=== PATIENT | female | born 1960 | race Caucasian/White ===

== ENCOUNTER 2019-01-03 20:36 | Inpatient (IN) | payer OTHER ==
[2019-01-03 20:36] VITALS: BMI 22.3
[2019-01-03] MEDS ORDERED: Lidocaine 5% Patch TD STA (21:00)
[2019-01-03] MEDS ORDERED: Lidocaine 5% Patch TD ONE (21:06)
[2019-01-03] MEDS ORDERED: Morphine 4 MG/ML VIAL ONE ×2 (21:12→22:26)
--- NOTE | 2019-01-03 21:49 | C.PDOC ---
History Of Present Illness Patient is a 58 year old female, with a hx of Seziures and herniated discs, presents to the ED c/o neck pain radiating to her lower back that began today while at work. 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 She rates the pain as a 10/10. She denies any headache, dizziness, weakness, numbness, or tingling. <Nazia Sheikh - Last Filed: 01/03/19 22:48> History Per: Patient History/Exam Limitations: no limitations Onset/Duration Of Symptoms: Hrs Current Symptoms Are (Timing): Still Present Quality Of Discomfort: "Pain" Pain Scale Rating Of: 10 Associated Symptoms: denies: New Weakness, New Numbness Recent travel outside of the [place]: No Additional History Per: Patient <Nazia Sheikh - Last Filed: 01/03/19 22:48> <Gregory Thompson - Last Filed: 01/04/19 00:41> Chief Complaint (Nursing): Back Pain Past Medical History Reviewed: Historical Data, Nursing Documentation, Vital Signs Vital Signs: Last Vital Signs Temp 98.8 F 01/03/19 20:41 Pulse 89 01/03/19 20:41 Resp 18 01/03/19 20:41 BP 152/62 H 01/03/19 20:41 Pulse Ox 98 01/03/19 20:41 Primary Care Provider: FAMILY PROVIDER,NO - Medical History PMH: Anxiety, Arthritis, Depression, Seizures Denies: Alzheimer's Disease, Anemia, Asthma, Bipolar Disorder, Bronchitis, Cardia Arrhythmia, CHF, COPD, Crohn's Disease, Dementia, Diverticulitis, Emphysema, Fibromyalgia, Fractures, Gastrointestinal Ulcer, Gall Bladder Disease, HIV, HTN, Hypercholesterolemia, Hyperthyroidism, Hypothyroidism, Kidney Stones, Migraine, Mitral Valve Prolapse, Osteoporosis, Pancreatitis, Paranoia, Parkinson's Disease, Peripheral Edema, Pneumonia, Post Traumatic Stress Disorder, Chronic Kidney Disease, Schizophrenia, Sickle Cell Disease, Sexually Transmitted Disease, Sleep Apnea, TIA Surgical History: Appendectomy Denies: Cholecystectomy, Coronary Stent, Pacemaker Family History: States: No Known Family Hx - Social History Hx Tobacco Use: No Hx Alcohol Use: No Hx Substance Use: No - Immunization History Hx Influenza Vaccination: Yes Hx Pneumococcal Vaccination: Yes <Nazia Sheikh - Last Filed: 01/03/19 22:48> Vital Signs: Last Vital Signs Temp 97.7 F 01/04/19 00:03 Pulse 74 01/04/19 00:03 Resp 18 01/04/19 00:03 BP 127/79 01/04/19 00:03 Pulse Ox 100 01/04/19 00:03 <Gregory Thompson - Last Filed: 01/04/19 00:41> Review Of Systems Constitutional: Negative for: Fever, Chills Cardiovascular: Negative for: Chest Pain Respiratory: Negative for: Shortness of Breath Gastrointestinal: Negative for: Nausea, Vomiting Musculoskeletal: Positive for: Neck Pain (neck pain radiating to lower back), Back Pain Skin: Negative for: Bruising Neurological: Negative for: Weakness, Numbness, Headache, Dizziness, Other (tingling) <Nazia Sheikh - Last Filed: 01/03/19 22:48> Physical Exam - Physical Exam Appears: Non-toxic, No Acute Distress Skin: Normal Color, Warm, Dry Head: Atraumatic, Normacephalic Eye(s): bilateral: Normal Inspection, PERRL Ear(s): Bilateral: Normal Nose: No Discharge Oral Mucosa: Moist Tongue: Normal Appearing Neck: Decreased ROM (limited ROM ), Other (Tender to touch posteriorly) Chest: Symmetrical Cardiovascular: Rhythm Regular, No Murmur Respiratory: Normal Breath Sounds, No Accessory Muscle Use, No Wheezing Gastrointestinal/Abdominal: Soft, No Tenderness Back: No CVA Tenderness, Vertebral Tenderness, Decreased ROM, Muscle Spasm, Paraspinal Tenderness, Other (Tender to lumbar spine. No ecchymosis, erythema, or edema) Extremity: Bilateral: Atraumatic Neurological/Psych: Oriented x3, Normal Speech, Normal Cognition, Normal Sensation <Nazia Sheikh - Last Filed: 01/03/19 22:48> ED Course And Treatment O2 Sat by Pulse Oximetry: 98 (on RA) Pulse Ox Interpretation: Normal <Nazia Sheikh - Last Filed: 01/03/19 22:48> - Laboratory Results Result Diagrams: 01/03/19 22:38 01/03/19 22:38 Lab Results: Total Bilirubin 0.3 mg/dL (0.2-1.3) 01/03/19 22:38 AST 29 U/L (14-36) 01/03/19 22:38 ALT 34 U/L (9-52) 01/03/19 22:38 Alkaline Phosphatase 118 U/L (38-126) 01/03/19 22:38 Total Protein 7.6 g/dL (6.3-8.3) 01/03/19 22:38 Albumin 4.4 g/dL (3.5-5.0) 01/03/19 22:38 Globulin 3.2 gm/dL (2.2-3.9) 01/03/19 22:38 Albumin/Globulin Ratio 1.4 (1.0-2.1) 01/03/19 22:38 <Gregory Thompson - Last Filed: 01/04/19 00:41> Medical Decision Making Medical Decision Making: Plan: Flexeril 10mg PO Lidoderm 1ea TD Morphine 4mg IM given Reassessed by Dr. Thompson: Intractable pain Morphine 6mg IV given Patient Admitted under Dr. Michel cuevas (accepted a10:49pm) requested Neuro consult (ordered) Patient is stable for transfer <Nazia Sheikh - Last Filed: 01/03/19 22:48> Medical Decision Makin: asked by nursing for more pain meds admitted last morphine dose approx 2 hrs ago morphine 6 mg IV ordered. <Gregory Thompson - Last Filed: 01/04/19 00:41> Disposition Discussed With : Reema Cuevas Doctor Will See Patient In The: Hospital Counseled Patient/Family Regarding: Diagnosis, Need For Followup, Rx Given - Disposition Disposition Time: 22:49 <Nazia Sheikh - Last Filed: 01/03/19 22:48> <Gregory Thompson - Last Filed: 01/04/19 00:41> - Disposition Disposition: HOSPITALIZED Condition: IMPROVED - Clinical Impression Clinical Impression: Low back pain, Neck pain, Seizure, Herniated disc, Intractable pain, Muscle spasm - PA / EXTENDER / Resident Statement MD/DO has examined the patient and agrees with the treatment plan. - Scribe Statement The provider has reviewed the documentation as recorded by the Ilan Bryan All medical record entries made by the Scribmisa were at my direction and personally dictated by me. I have reviewed the chart and agree that the record accurately reflects my personal performance of the history, physical exam, medical decision making, and the department course for this patient. I have also personally directed, reviewed, and agree with the discharge instructions and disposition. <Nazia Sheikh - Last Filed: 01/03/19 22:48> Decision To Admit - Pt Status Changed To: Hospital Disposition Of: Observation - . Bed Request Type: Regular Admitting Physician: Reema Cuevas <Nazia Sheikh - Last Filed: 01/03/19 22:48> <Gregory Thompson - Last Filed: 01/04/19 00:41> - . Patient Diagnosis: Low back pain, Neck pain, Seizure, Herniated disc, Intractable pain, Muscle spasm
[2019-01-03] MEDS ORDERED: Morphine 4 MG/ML VIAL IV ONE (22:10)
[2019-01-03 22:52] LABS: BASO # 0.1 K/uL (0.0-0.2); BASO % 1.1 % (0.0-2.0); EOS # 0.2 K/uL (0.0-0.7); EOS % 2.8 % (0.0-4.0); HEMOGLOBIN 11.3 g/dL (11.0-16.0); LYMPH # 2.3 K/uL (1.0-4.3); LYMPH % 33.9 % (20.0-40.0); MEAN CELL VOLUME 91.1 fL (81.0-99.0); MEAN CORPUSCULAR HEMOGLOBIN 30.6 pg (27.0-31.0); MEAN CORPUSCULAR HGB CONC 33.6 g/dL (33.0-37.0); MONO # 0.7 K/uL (0.0-0.8); MONO % 9.9 % (0.0-10.0); NEUT # 3.5 K/uL (1.8-7.0); NEUT % 52.3 % (50.0-75.0); RBC 3.69 Mil/uL (3.80-5.20); RED CELL DISTRIBUTION WIDTH 14.8 % (11.5-14.5); WHITE BLOOD COUNT 6.7 K/uL (4.8-10.8)
[2019-01-03 22:56] LABS: ALB/GLOB RATIO 1.4 (1.0-2.1); ALBUMIN 4.4 g/dL (3.5-5.0); ALT/SGPT 34 U/L (9-52); AST/SGOT 29 U/L (14-36); BLOOD UREA NITROGEN 17 mg/dL (7-17); CALCIUM 9.6 mg/dl (8.6-10.4); GFR NON-AFRICAN AMERICAN > 60
[2019-01-04] MEDS ORDERED: Morphine 4 MG/ML VIAL ONE (00:33)
[2019-01-04] MEDS: Morphine 4 MG/ML VIAL IVP PRN ×2 (07:34→18:09)
[2019-01-04 07:41] LABS: BASO # 0.1 K/uL (0.0-0.2); BASO % 1.5 % (0.0-2.0); EOS # 0.2 K/uL (0.0-0.7); EOS % 3.8 % (0.0-4.0); HEMOGLOBIN 10.7 g/dL (11.0-16.0); LYMPH # 2.4 K/uL (1.0-4.3); MEAN CELL VOLUME 92.4 fL (81.0-99.0); MEAN CORPUSCULAR HGB CONC 33.6 g/dL (33.0-37.0); MONO # 0.6 K/uL (0.0-0.8); MONO % 11.4 % (0.0-10.0); NEUT # 2.2 K/uL (1.8-7.0); NEUT % 40.3 % (50.0-75.0); NRBC % 0.1 % (0.0-2.0); RBC 3.45 Mil/uL (3.80-5.20); RED CELL DISTRIBUTION WIDTH 14.8 % (11.5-14.5); WHITE BLOOD COUNT 5.5 K/uL (4.8-10.8)
[2019-01-04 08:01] LABS: ALB/GLOB RATIO 1.4 (1.0-2.1); ALBUMIN 3.9 g/dL (3.5-5.0); ALT/SGPT 27 U/L (9-52); AST/SGOT 29 U/L (14-36); BLOOD UREA NITROGEN 13 mg/dL (7-17); CALCIUM 9.1 mg/dl (8.6-10.4); GFR NON-AFRICAN AMERICAN > 60
--- NOTE | 2019-01-04 09:09 | CP.PCM.PN ---
Subjective - Date & Time of Evaluation Date of Evaluation: 01/04/19 Time of Evaluation: 09:08 - Subjective Subjective: 58 year old female with a past medical history of seizures, chronic low back pain and herniated discs present admitted to the hospital after feeling neck pain radiating down to the lumbar region. 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 Patient reports it being sharp in nature and rates it a 6/10 in severity. Patient denies taking anything for the pain. Patient denies any fevers, chills, headaches, palpitations, dizziness, changes in vision, or any other complaints. Medical history: seizures, low back pain Surgery history: Medications: Lamotrigine 25mg PO BID, Lamotrigine 100mg PO BID Objective - Vital Signs/Intake and Output Vital Signs (last 24 hours): Temp Pulse Resp BP Pulse Ox 99.4 F 66 20 100/61 99 01/04/19 07:00 01/04/19 07:00 01/04/19 07:00 01/04/19 07:00 01/04/19 07:00 - Medications Medications: Current Medications Enoxaparin Sodium (Lovenox) 40 mg SC DAILY [facility] Morphine Sulfate (Morphine) 4 mg IVP Q6 PRN PRN Reason: Pain, moderate (4-7) Last Admin: 01/04/19 07:34 Dose: 4 mg Pantoprazole Sodium (Protonix Ec Tab) 40 mg PO DAILY [facility] - Labs Labs: 01/04/19 07:32 01/04/19 07:32 - Head Exam Head Exam: ATRAUMATIC, NORMAL INSPECTION - Eye Exam Eye Exam: EOMI, Normal appearance Pupil Exam: NORMAL ACCOMODATION, PERRL - ENT Exam ENT Exam: Mucous Membranes Moist, Normal Exam - Neck Exam Neck Exam: Normal Inspection. absent: Lymphadenopathy, Meningismus - Respiratory Exam Respiratory Exam: Clear to Ausculation Bilateral, NORMAL BREATHING PATTERN - Cardiovascular Exam Cardiovascular Exam: REGULAR RHYTHM, +S1, +S2 - GI/Abdominal Exam GI & Abdominal Exam: Soft, Normal Bowel Sounds. absent: Diminished Bowel Sounds, Organomegaly - Neurological Exam Neurological Exam: Alert, Awake, CN II-XII Intact, Oriented x3. absent: Motor Sensory Deficit - Psychiatric Exam Psychiatric exam: Normal Affect, Normal Mood - Skin Skin Exam: Dry, Intact, Normal Color, Warm Assessment and Plan - Assessment and Plan (Free Text) Assessment: 58 year old female with a past medical history of seizures, herniated discs and back pain admitted for intractable pain. Plan: 1.Intractable pain Hx of herniated dics and chronic back pain. Flexeril and Morphine given in the E.D. Neurology Dr. Spangler consulted--> Help appreciated Spinal MRI ordered. Will f/u with results Medications: Morphine 4mg IVP Q6 PRN Flexeril 5mg PO TID 2.hx of Seizures -Continue Lamotrigine 25mg PO BID -Continue Lamotrigine 100mg PO BID ppx Protonix Lovenox Dispo: Patient to have spinal MRI. Awaiting Neurology reccomendations. Plan discussed with Attending Dr. Cal De La Cruz, PGY-2
[2019-01-04] MEDS: Enoxaparin 40 mg Syringe SC SCH (09:15)
[2019-01-04] MEDS: Pantoprazole 40 mg EC Tab PO SCH (09:15)
--- NOTE | 2019-01-04 14:03 | CP.PCM.CON ---
History of Present Illness - History of Present Illness History of Present Illness: Neurology Consultation Note Consultation requested by Aguilar Goldberg Mrs. Antoine is a 58 y/o female with a PMHx of Anxiety, Arthritis, Depression, Seizures (last seizure was approx 3 weeks ago per the pt; generally well controlled with medication), herniated discs (pt cannot recall exact location of herniations and when they were diagnosed). She is admitted to [facility] for intractable back pain that started yesterday while the pt was at work. 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 Pt states that the pain was "unbearable", which is what prompted her to come to the hospital. She denies any incontinence (bladder or bowel), denies paresthesias. Also denies h/a, dizziness, visual changes, chest pain, palpitations, sob, cough, urinary symptoms, abd pain, n/v/d, fever/chills, falls/direct back trauma, paresthesias. No neuro imaging has been done yet, though C-Spine, T-Spine, and L-Spine MRIs are ordered and pending. Neurology has been consulted to assist with the management and care of this pt. Review of Systems - Constitutional Constitutional: As Per HPI - EENT Eyes: As Per HPI Ears: As Per HPI Nose/Mouth/Throat: As Per HPI - Breasts Breasts: As Per HPI - Cardiovascular Cardiovascular: As Per HPI - Respiratory Respiratory: As Per HPI - Gastrointestinal Gastrointestinal: As Per HPI - Genitourinary Genitourinary: As Per HPI - Reproductive: Female Reproductive:Female: As Per HPI - Menstruation Menstruation: As Per HPI - Musculoskeletal Musculoskeletal: As Per HPI - Integumentary Integumentary: As Per HPI - Neurological Neurological: As Per HPI - Psychiatric Psychiatric: As Per HPI - Endocrine Endocrine: As Per HPI - Hematologic/Lymphatic Hematologic: As Per HPI Past Patient History - Infectious Disease Hx of Infectious Diseases: None - Tetanus Immunizations Tetanus Immunization: Unknown - Past Medical History & Family History Past Medical History?: Yes - Past Social History Smoking Status: Former Smoker Chewing Tobacco Use: No Cigar Use: No 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 Home Situation {Lives}: With Family Domestic Violence: Negative - CARDIAC Hx Cardia Arrhythmia: No Hx Congestive Heart Failure: No Hx Hypercholesterolemia: No Hx Hypertension: No Hx Mitral Valve Prolapse: No Hx Pacemaker: No Hx Peripheral Edema: No - PULMONARY Hx Asthma: No Hx Bronchitis: No Hx Chronic Obstructive Pulmonary Disease (COPD): No Hx Emphysema: No Hx Pneumonia: No Hx Sleep Apnea: No - NEUROLOGICAL Hx Alzheimer's Disease: No Hx Dementia: No Hx Migraine: No Hx Parkinson's Disease: No Hx Seizures: Yes Hx Transient Ischemic Attacks (TIA): No - HEENT Hx HEENT Problems: No - RENAL Hx Chronic Kidney Disease: No Hx Kidney Stones: No - ENDOCRINE/METABOLIC Hx Hyperthyroidism: No Hx Hypothyroidism: No - HEMATOLOGICAL/ONCOLOGICAL Hx Anemia: No Hx Human Immunodeficiency Virus (HIV): No Hx Sickle Cell Disease: No - INTEGUMENTARY Hx Dermatological Problems: No - MUSCULOSKELETAL/RHEUMATOLOGICAL Hx Musculoskeletal Disorders: Yes Hx Arthritis: Yes Hx Back Pain: Yes Hx Herniated Disk: Yes (pt unsure of location of herniation) - GASTROINTESTINAL Hx Crohn's Disease: No Hx Diverticulitis: No Hx Gall Bladder Disease: No Hx Pancreatitis: No - GENITOURINARY/GYNECOLOGICAL Hx Sexually Transmitted Disorders: No - PSYCHIATRIC Hx Anxiety: Yes Hx Bipolar Disorder: No Hx Depression: Yes Hx Paranoia: No Hx Post Traumatic Stress Disorder: No Hx Schizophrenia: No Hx Substance Use: No - SURGICAL HISTORY Hx Appendectomy: Yes Hx Cholecystectomy: No Hx Coronary Stent: No - ANESTHESIA Hx Anesthesia: No Hx Anesthesia Reactions: No Hx Malignant Hyperthermia: No Meds Allergies/Adverse Reactions: Allergies Allergy/AdvReac Type Severity Reaction Status Date / Time aspirin Allergy Verified 01/03/19 20:45 ibuprofen Allergy Verified 01/03/19 20:45 iodine Allergy Verified 01/03/19 20:45 - Medications Medications: Current Medications Cyclobenzaprine HCl (Flexeril) 5 mg PO TID [facility] Enoxaparin Sodium (Lovenox) 40 mg SC DAILY [facility] Last Admin: 01/04/19 09:15 Dose: 40 mg Lamotrigine (Lamictal) 25 mg PO BID [facility] Last Admin: 01/04/19 11:15 Dose: 25 mg Lamotrigine (Lamictal) 100 mg PO BID [facility] Morphine Sulfate (Morphine) 4 mg IVP Q6 PRN PRN Reason: Pain, moderate (4-7) Last Admin: 01/04/19 07:34 Dose: 4 mg Pantoprazole Sodium (Protonix Ec Tab) 40 mg PO DAILY [facility] Last Admin: 01/04/19 09:15 Dose: 40 mg Physical Exam - Constitutional Appears: In Acute Distress (in pain; grimacing and holding lower back), Other (able to follow commands; awake, alert) - Head Exam Head Exam: ATRAUMATIC, NORMAL INSPECTION, NORMOCEPHALIC - Eye Exam Eye Exam: EOMI, Normal appearance, PERRL Pupil Exam: NORMAL ACCOMODATION, PERRL - ENT Exam ENT Exam: Mucous Membranes Moist, Normal Exam - Neck Exam Neck exam: Positive for: Normal Inspection. Negative for: Full Rom (decreased ROM 2/2 pain) - Respiratory Exam Respiratory Exam: Clear to Auscultation Bilateral, NORMAL BREATHING PATTERN - Cardiovascular Exam Cardiovascular Exam: REGULAR RHYTHM. absent: Tachycardia - GI/Abdominal Exam GI & Abdominal Exam: Soft. absent: Distended, Tenderness - Extremities Exam Extremities exam: Positive for: normal inspection. Negative for: calf tenderness, pedal edema, tenderness Additional comments: Able to move all extremities but does grimace during exam RLE slightly weaker than the left but still has 4/5 strength proximal and approx 5/5 with plantar flexion and 4/5 with dorsiflexion - Back Exam Back exam: NORMAL INSPECTION, paraspinal tenderness (to c/t/l spine ). absent: FULL ROM - Neurological Exam Neurological exam: Alert, CN II-XII Intact, Oriented x3 Additional comments: AAOx3 Able to move all extremities but does grimace during exam BUE strength 5/5 proximal and distal; RLE slightly weaker than the left but still has 4/5 strength proximally and approx 5/5 with plantar flexion and 4/5 with dorsiflexion Slight decrease of sensation to the LLE Hyporeflexia to the RLE compared to the left No tremors/abnormal movements. - Psychiatric Exam Psychiatric exam: Normal Affect, Normal Mood - Skin Skin Exam: Dry, Intact, Normal Color Results - Vital Signs Recent Vital Signs: Last Vital Signs Temp 99.4 F 01/04/19 07:00 Pulse 66 01/04/19 07:00 Resp 20 01/04/19 07:00 BP 100/61 01/04/19 07:00 Pulse Ox 99 01/04/19 07:00 - Labs Result Diagrams: 01/04/19 07:32 01/04/19 07:32 Labs: Laboratory Results - last 24 hr 01/03/19 01/03/19 01/04/19 22:38 22:38 07:32 WBC 6.7 5.5 RBC 3.69 L 3.45 L Hgb 11.3 10.7 L Hct 33.6 L 31.9 L MCV 91.1 D 92.4 MCH 30.6 31.0 MCHC 33.6 33.6 RDW 14.8 H 14.8 H Plt Count 293 295 MPV 8.0 8.0 Neut % (Auto) 52.3 40.3 L Lymph % (Auto) 33.9 43.0 H Beadle % (Auto) 9.9 11.4 H Eos % (Auto) 2.8 3.8 Baso % (Auto) 1.1 1.5 Neut # (Auto) 3.5 2.2 Lymph # (Auto) 2.3 2.4 Beadle # (Auto) 0.7 0.6 Eos # (Auto) 0.2 0.2 Baso # (Auto) 0.1 0.1 Sodium 138 Potassium 3.6 Chloride 105 Carbon Dioxide 22 Anion Gap 15 BUN 17 Creatinine 0.7 Est GFR ( Amer) > 60 Est GFR (Non-Af Amer) > 60 Random Glucose 108 H Calcium 9.6 Total Bilirubin 0.3 AST 29 ALT 34 Alkaline Phosphatase 118 Total Protein 7.6 Albumin 4.4 Globulin 3.2 Albumin/Globulin Ratio 1.4 01/04/19 07:32 WBC RBC Hgb Hct MCV MCH MCHC RDW Plt Count MPV Neut % (Auto) Lymph % (Auto) Beadle % (Auto) Eos % (Auto) Baso % (Auto) Neut # (Auto) Lymph # (Auto) Beadle # (Auto) Eos # (Auto) Baso # (Auto) Sodium 140 Potassium 4.4 Chloride 104 Carbon Dioxide 27 Anion Gap 13 BUN 13 Creatinine 0.8 Est GFR ( Amer) > 60 Est GFR (Non-Af Amer) > 60 Random Glucose 83 D Calcium 9.1 Total Bilirubin 0.3 AST 29 ALT 27 Alkaline Phosphatase 84 Total Protein 6.7 Albumin 3.9 Globulin 2.8 Albumin/Globulin Ratio 1.4 Assessment & Plan (1) Intractable back pain Assessment and Plan: -No neuro imaging done to review at this time. -MRIs of the C/T/L spines are ordered and pending--will f/u with results. -Decadron 10 mg IV x1 dose now. -NS 500 ml IV Bolus x1 for hypotension---to be given prior to MRI. Hypotension may be related to the Morphine given earlier today. If hypotension persists, please notify primary team for further orders. -Neurosurgery consult---recs appreciated once MRIs are completed. -PT/OT. -Notify neuro team of any acute changes in pt's condition. Connie Lamas DNP, MANUFACTURING SR ENGINEER d/w Dr. Spangler Status: Acute (2) Seizure Assessment and Plan: -Continue Lamictal 25 mg PO BID (this is what the pt is taking at home and t olerates well). -Seizure precautions while admitted. -She can f/u with her neurologist as outpatient for seizure management once she is d/c. Katie Lamas DNP, MANUFACTURING SR ENGINEER d/w Dr. Spangler Status: Chronic - Date & Time Date: 01/04/19 Time: 14:57
[2019-01-04] MEDS ORDERED: Sodium Chloride 0.9% 500 ML IV ONE ×2 (14:45→17:33)
[2019-01-04 17:05] LABS: BASO # 0.1 K/uL (0.0-0.2); BASO % 1.3 % (0.0-2.0); EOS # 0.2 K/uL (0.0-0.7); EOS % 3.4 % (0.0-4.0); HEMOGLOBIN 11.5 g/dL (11.0-16.0); LYMPH # 2.4 K/uL (1.0-4.3); LYMPH % 45.9 % (20.0-40.0); MEAN CORPUSCULAR HEMOGLOBIN 30.2 pg (27.0-31.0); MEAN CORPUSCULAR HGB CONC 33.5 g/dL (33.0-37.0); MEAN PLATELET VOLUME 7.8 fL (7.2-11.7); MONO # 0.5 K/uL (0.0-0.8); MONO % 9.4 % (0.0-10.0); NEUT # 2.1 K/uL (1.8-7.0); NRBC % 0.1 % (0.0-2.0); RBC 3.82 Mil/uL (3.80-5.20); WHITE BLOOD COUNT 5.2 K/uL (4.8-10.8)
[2019-01-04 17:08] LABS: MEAN CELL VOLUME 90.2 fL (81.0-99.0)
--- NOTE | 2019-01-04 17:17 | PCM.RRT ---
<Cullen Viera - Last Filed: 01/04/19 18:32> FARM MECHANIC APPRENTICE Nurses Assessment - Situation Date: 01/04/19 Time FARM MECHANIC APPRENTICE was called: 16:17 FARM MECHANIC APPRENTICE Responder Arrival Time:: 16:19 FARM MECHANIC APPRENTICE Location:: Med/Surg FARM MECHANIC APPRENTICE Called By: Patient/Family Request - IV IV Inserted during FARM MECHANIC APPRENTICE?: Yes - Respiratory FARM MECHANIC APPRENTICE Delivery Method: Room Air I.Reason for FARM MECHANIC APPRENTICE - A) Acute Change in Patient: (Select all that apply): Staff member or family is worried about patient, Acute change in mental status Subjective: Rapid called after family member noted that patient was seizing Shortly after arrival, patient stopped seizing, initially confused, then began to speak. - Neurological Status (Select all that apply): Confused - Respiratory Oxygen Delivery Method: Room Air - Constitutional Appears: In Acute Distress, Confused - Head Head Exam: ATRAUMATIC, NORMOCEPHALIC - Eyes Eye Exam: EOMI, PERRL - Respiratory Exam Respiratory Exam: Clear to Ausculation Bilateral, NORMAL BREATHING PATTERN - Cardiovascular Exam Cardiovascular Exam: Tachycardia, +S1, +S2 - GI/Abdominal Exam GI & Abdominal Exam: Soft, Normal Bowel Sounds. absent: Distended, Firm, Gu arding, Rigid, Tenderness - Neurological Exam Additional exam: Initially confused, however later became more alert able to move all extremities, speaking. - Extremities Exam Extremities Exam: absent: Calf Tenderness, Pedal Edema Plan - Assessment of Findings&Treatment Plan Rapid called after family member witnessed seizure activity Initial vitals noted to have Temp 98 HR 83 BP 113/64 100% RA RR 20 Blood sugar noted to have 96 Patient was placed on telemetry monitoring - was in sinus rhythm. Patient awake, anxious, able to follow commands. On review, patient had only received Lamictal 25mg this morning. Call made to patient's pharmacy revealed that patient takes Lamictal 100mg twice a day. Additional Lamictal 75mg PO given. Ativan 0.5mg IV stat given as patient appeared anxious. Patient complained of pain in the back of head. On exam, roll on worker 2-12 intact. Able to move upper and lower extremities. CT head without contrast ordered. Stat EKG revealed patient was in SR [address] elevations, no Q waves normal axis GIANA panel stat negative, Lamictal stat ordered and pending. Repeat VS BP 108/62 HR 81 100% on RA Patient alert, awake, talking prior to being taken to CT. On exam, patient was alert, awake, able to move all extremities, appeared anxious, no slurred speech. CT head was negative and patient was taken back to the room. Cullen Viera, PGY1 <Danny Mcgrath - Last Filed: 01/05/19 17:14> FARM MECHANIC APPRENTICE Nurses Assessment - Vital Signs Vital Signs: Rapid Response Vital Sign Blood Pressure 113/64 Pulse Rate 83 Respiratory Rate 20 Temperature 98 F Oxygen Saturation 100 - Vital Signs at end of FARM MECHANIC APPRENTICE Vital Signs at end of FARM MECHANIC APPRENTICE: Rapid Response End Vital Sign Blood Pressure 108/62 Pulse Rate 79 Respiratory Rate 20 Temperature 98 F O2 Sat by Pulse Oximetry 100 Attending/Attestation - Attestation I have personally seen and examined this patient.: Yes I have fully participated in the care of the patient.: Yes I have reviewed all pertinent clinical information, including history, physical exam and plan: Yes Notes (Text): 01/05/19 17:14 This is a late entry. Patient was seen and examined with resident. Care of this patient was gone over in detail with resident Dr. Viera. Danny Mcgrath D.O.
--- NOTE | 2019-01-04 17:23 | CT ---
Date of service: 01/04/2019 PROCEDURE: CT HEAD WITHOUT CONTRAST. HISTORY: breakthrough seiz COMPARISON: None available. TECHNIQUE: Axial computed tomography images were obtained through the head/brain without intravenous contrast. Radiation dose: Total exam DLP = 1053.09 mGy-cm. This CT exam was performed using one or more of the following dose reduction techniques: Automated exposure control, adjustment of the mA and/or kV according to patient size, and/or use of iterative reconstruction technique. FINDINGS: HEMORRHAGE: No intracranial hemorrhage. BRAIN: No mass effect or edema. The valerio-white matter differentiation appears intact. Please note that MRI with diffusion imaging is more sensitive in the detection of acute ischemic event. VENTRICLES: No hydrocephalus. CALVARIUM: Unremarkable. PARANASAL SINUSES: Unremarkable as visualized. No significant inflammatory changes. MASTOID AIR CELLS: Unremarkable as visualized. No inflammatory changes. OTHER FINDINGS: None. IMPRESSION: No acute intracranial pathology identified.
[2019-01-04 17:52] LABS: CK-MB 1.09 ng/mL (0.0-3.38)
[2019-01-04] MEDS ORDERED: Morphine 4 MG/ML VIAL IVP STA (22:53)
--- NOTE | 2019-01-04 23:12 | CP.PCM.HP ---
History of Present Illness - History of Present Illness History of Present Illness: Patient is 58-year old female patient comes to the ED with complaint of neck pain radiating to her lower back that began while at work. 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 History of seizures and herniated disks.past medical history of anxiety, arthritis, depression, seizures.past surgical history of appendectomy.'s. no history of any headache, dizziness, weakness, numbness, or tingling.no history of chest pain, palpitations, shortness of breath. Past Medical History Reviewed: Historical Data, Nursing Documentation, Vital Signs Vital Signs: Last Vital Signs Temp 98.8 F 01/03/19 20:41 Pulse 89 01/03/19 20:41 Resp 18 01/03/19 20:41 BP 152/62 H 01/03/19 20:41 Pulse Ox 98 01/03/19 20:41 - Medical History PMH: Anxiety, Arthritis, Depression, Seizures Denies: Alzheimer's Disease, Anemia, Asthma, Bipolar Disorder, Bronchitis, Cardia Arrhythmia, CHF, COPD, Crohn's Disease, Dementia, Diverticulitis, Emphysema, Fibromyalgia, Fractures, Gastrointestinal Ulcer, Gall Bladder Disease, HIV, HTN, Hypercholesterolemia, Hyperthyroidism, Hypothyroidism, Kidney Stones, Migraine, Mitral Valve Prolapse, Osteoporosis, Pancreatitis, Paranoia, Parkinson's Disease, Peripheral Edema, Pneumonia, Post Traumatic Stress Disorder, Chronic Kidney Disease, Schizophrenia, Sickle Cell Disease, Sexually Transmitted Disease, Sleep Apnea, TIA Surgical History: Appendectomy Denies: Cholecystectomy, Coronary Stent, Pacemaker Family History: States: No Known Family Hx - Social History Hx Tobacco Use: No Hx Alcohol Use: No Hx Substance Use: No - Immunization History Hx Influenza Vaccination: Yes Hx Pneumococcal Vaccination: Yes Last Vital Signs Temp 97.7 F 01/04/19 00:03 Pulse 74 01/04/19 00:03 Resp 18 01/04/19 00:03 BP 127/79 01/04/19 00:03 Pulse Ox 100 01/04/19 00:03 > Review Of Systems Constitutional: Negative for: Fever, Chills Cardiovascular: Negative for: Chest Pain Respiratory: Negative for: Shortness of Breath Gastrointestinal: Negative for: Nausea, Vomiting Musculoskeletal: Positive for: Neck Pain (neck pain radiating to lower back), Back Pain Skin: Negative for: Bruising Neurological: Negative for: Weakness, Numbness, Headache, Dizziness, Other (tingling) Past Patient History - Infectious Disease Hx of Infectious Diseases: None - Tetanus Immunizations Tetanus Immunization: Unknown - Past Medical History & Family History Past Medical History?: Yes - Past Social History Smoking Status: Former Smoker Chewing Tobacco Use: No Cigar Use: No 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 Home Situation {Lives}: With Family Domestic Violence: Negative - CARDIAC Hx Cardia Arrhythmia: No Hx Congestive Heart Failure: No Hx Hypercholesterolemia: No Hx Hypertension: No Hx Mitral Valve Prolapse: No Hx Pacemaker: No Hx Peripheral Edema: No - PULMONARY Hx Asthma: No Hx Bronchitis: No Hx Chronic Obstructive Pulmonary Disease (COPD): No Hx Emphysema: No Hx Pneumonia: No Hx Sleep Apnea: No - NEUROLOGICAL Hx Alzheimer's Disease: No Hx Dementia: No Hx Migraine: No Hx Parkinson's Disease: No Hx Seizures: Yes Hx Transient Ischemic Attacks (TIA): No - HEENT Hx HEENT Problems: No - RENAL Hx Chronic Kidney Disease: No Hx Kidney Stones: No - ENDOCRINE/METABOLIC Hx Hyperthyroidism: No Hx Hypothyroidism: No - HEMATOLOGICAL/ONCOLOGICAL Hx Anemia: No Hx Human Immunodeficiency Virus (HIV): No Hx Sickle Cell Disease: No - INTEGUMENTARY Hx Dermatological Problems: No - MUSCULOSKELETAL/RHEUMATOLOGICAL Hx Musculoskeletal Disorders: Yes Hx Arthritis: Yes Hx Back Pain: Yes Hx Herniated Disk: Yes (pt unsure of location of herniation) - GASTROINTESTINAL Hx Crohn's Disease: No Hx Diverticulitis: No Hx Gall Bladder Disease: No Hx Pancreatitis: No - GENITOURINARY/GYNECOLOGICAL Hx Sexually Transmitted Disorders: No - PSYCHIATRIC Hx Anxiety: Yes Hx Bipolar Disorder: No Hx Depression: Yes Hx Paranoia: No Hx Post Traumatic Stress Disorder: No Hx Schizophrenia: No Hx Substance Use: No - SURGICAL HISTORY Hx Appendectomy: Yes Hx Cholecystectomy: No Hx Coronary Stent: No - ANESTHESIA Hx Anesthesia: No Hx Anesthesia Reactions: No Hx Malignant Hyperthermia: No Meds Allergies/Adverse Reactions: Allergies Allergy/AdvReac Type Severity Reaction Status Date / Time aspirin Allergy RASH Verified 01/05/19 19:00 ibuprofen Allergy RASH Verified 01/05/19 19:00 iodine Allergy RASH Verified 01/05/19 19:00 ketorolac [From Toradol] Allergy RASH Verified 01/05/19 19:00 Physical Exam - Constitutional Appears: Well - Head Exam Head Exam: ATRAUMATIC, NORMAL INSPECTION, NORMOCEPHALIC - Eye Exam Eye Exam: EOMI, Normal appearance, PERRL Pupil Exam: NORMAL ACCOMODATION, PERRL - ENT Exam ENT Exam: Mucous Membranes Moist, Normal Exam - Neck Exam Neck exam: Positive for: Normal Inspection - Respiratory Exam Respiratory Exam: Decreased Breath Sounds - Cardiovascular Exam Cardiovascular Exam: REGULAR RHYTHM, +S1, +S2 - GI/Abdominal Exam GI & Abdominal Exam: Diminished Bowel Sounds, Soft - Rectal Exam Rectal Exam: Deferred - Neurological Exam Neurological exam: Oriented x3 Results - Vital Signs Recent Vital Signs: Last Vital Signs Temp 98.6 F 01/04/19 15:55 Pulse 83 01/04/19 15:55 Resp 20 01/04/19 15:55 BP 95/61 L 01/04/19 15:55 Pulse Ox 100 01/04/19 16:00 - Labs Result Diagrams: 01/10/19 06:31 01/10/19 06:31 Labs: Laboratory Results - last 24 hr 01/04/19 01/04/19 01/04/19 07:32 07:32 16:21 WBC 5.5 RBC 3.45 L Hgb 10.7 L Hct 31.9 L MCV 92.4 MCH 31.0 MCHC 33.6 RDW 14.8 H Plt Count 295 MPV 8.0 Neut % (Auto) 40.3 L Lymph % (Auto) 43.0 H [place] % (Auto) 11.4 H Eos % (Auto) 3.8 Baso % (Auto) 1.5 Neut # (Auto) 2.2 Lymph # (Auto) 2.4 [place] # (Auto) 0.6 Eos # (Auto) 0.2 Baso # (Auto) 0.1 Sodium 140 Potassium 4.4 Chloride 104 Carbon Dioxide 27 Anion Gap 13 BUN 13 Creatinine 0.8 Est GFR ( Amer) > 60 Est GFR (Non-Af Amer) > 60 POC Glucose (mg/dL) 96 Random Glucose 83 D Calcium 9.1 Total Bilirubin 0.3 AST 29 ALT 27 Alkaline Phosphatase 84 Total Creatine Kinase CK-MB (Mass) Troponin I Total Protein 6.7 Albumin 3.9 Globulin 2.8 Albumin/Globulin Ratio 1.4 01/04/19 01/04/19 16:59 16:59 WBC 5.2 RBC 3.82 Hgb 11.5 Hct 34.5 MCV 90.2 D MCH 30.2 MCHC 33.5 RDW 15.0 H Plt Count 282 MPV 7.8 Neut % (Auto) 40.0 L Lymph % (Auto) 45.9 H [place] % (Auto) 9.4 Eos % (Auto) 3.4 Baso % (Auto) 1.3 Neut # (Auto) 2.1 Lymph # (Auto) 2.4 [place] # (Auto) 0.5 Eos # (Auto) 0.2 Baso # (Auto) 0.1 Sodium Potassium Chloride Carbon Dioxide Anion Gap BUN Creatinine Est GFR ( Amer) Est GFR (Non-Af Amer) POC Glucose (mg/dL) Random Glucose Calcium Total Bilirubin AST ALT Alkaline Phosphatase Total Creatine Kinase 133 CK-MB (Mass) 1.09 Troponin I < 0.0120 Total Protein Albumin Globulin Albumin/Globulin Ratio Assessment & Plan - Assessment and Plan (Free Text) Assessment: Plan WBC 6.7 Hemoglobin 11.3 Hematocrit 33.6 Platelets 293 Sodium 138 Potassium 3.6 Bicarbonate 22 Bun 17 Creatinine 0.7 Glucose 108 O2 saturation 98 Moderate to high complexity of care. Plan of care discussed with patient &/or family & next staff. Medications reviewed and reconciled. Labs reviewed. Vitals reviewed.
[2019-01-05] MEDS ORDERED: Morphine 4 MG/ML VIAL IV PRN (01:34)
[2019-01-05] MEDS ORDERED: Morphine 4 MG/ML VIAL IV SCH (04:00)
[2019-01-05] MEDS ORDERED: Sodium Chloride 0.9% 500 ML IV ONE ×2 (08:45→11:11)
[2019-01-05] MEDS: Pantoprazole 40 mg EC Tab PO SCH (09:22)
[2019-01-05] MEDS: Enoxaparin 40 mg Syringe SC SCH (09:23)
[2019-01-05 11:23] LABS: ABG ALLEN TEST POS; ARTERIAL BLOOD GAS HCO3 26.3 mmol/L (21-28); ARTERIAL BLOOD GAS O2 SAT 100.5 % (95-98); ARTERIAL BLOOD GAS PCO2 29 mm/Hg (35-45); ARTERIAL BLOOD GAS PH 7.52 (7.35-7.45); ARTERIAL BLOOD GAS PO2 123 mm/Hg (80-100); ARTERIAL BLOOD GAS TCO2 24.6 mmol/L (22-28)
--- NOTE | 2019-01-05 11:49 | RAD ---
HISTORY: eval lungs COMPARISON: Chest x-ray performed 10/21/14 TECHNIQUE: Chest, one view. FINDINGS: Numerous external wires and leads obscure evaluation of the underlying parenchyma. LUNGS: No focal consolidation. Please note that chest x-ray has limited sensitivity for the detection of pulmonary masses. PLEURA: No significant pleural effusion identified. No definite pneumothorax . CARDIOVASCULAR: The cardiomediastinal silhouette appears within normal limits of size. No significant atherosclerotic calcification present. OSSEOUS STRUCTURES: No acute osseous abnormality identified. VISUALIZED UPPER ABDOMEN: Unremarkable. OTHER FINDINGS: None. IMPRESSION: No acute findings identified.
[2019-01-05 11:55] LABS: B-TYPE NATRIURETIC PEPTIDE 158 pg/mL (0-900)
[2019-01-05] MEDS ORDERED: Sodium Chloride 0.9% 1,000 ML IV ONE ×3 (12:00→13:55)
[2019-01-05] MEDS: Sodium Chloride 0.9% 1,000 ML IV SCH ×2 (12:30→22:18)
--- NOTE | 2019-01-05 13:18 | CP.PCM.CON ---
History of Present Illness - History of Present Illness History of Present Illness: 58 y/o female with pmx of chronic pain on morphine and flexaril was noted to have hypotension. Rapid reponse was not called; ICu consulted. Patient seen and exmined at bedside. Patient denies any pain, denies any dizziness. 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 Home Situation {Lives}: With Family Domestic Violence: Negative - CARDIAC Hx Cardia Arrhythmia: No Hx Congestive Heart Failure: No Hx Hypercholesterolemia: No Hx Hypertension: No Hx Mitral Valve Prolapse: No Hx Pacemaker: No Hx Peripheral Edema: No - PULMONARY Hx Asthma: No Hx Bronchitis: No Hx Chronic Obstructive Pulmonary Disease (COPD): No Hx Emphysema: No Hx Pneumonia: No Hx Sleep Apnea: No - NEUROLOGICAL Hx Alzheimer's Disease: No Hx Dementia: No Hx Migraine: No Hx Parkinson's Disease: No Hx Seizures: Yes Hx Transient Ischemic Attacks (TIA): No - HEENT Hx HEENT Problems: No - RENAL Hx Chronic Kidney Disease: No Hx Kidney Stones: No - ENDOCRINE/METABOLIC Hx Hyperthyroidism: No Hx Hypothyroidism: No - HEMATOLOGICAL/ONCOLOGICAL Hx Anemia: No Hx Human Immunodeficiency Virus (HIV): No Hx Sickle Cell Disease: No - INTEGUMENTARY Hx Dermatological Problems: No - MUSCULOSKELETAL/RHEUMATOLOGICAL Hx Musculoskeletal Disorders: Yes Hx Arthritis: Yes Hx Back Pain: Yes Hx Herniated Disk: Yes (pt unsure of location of herniation) - GASTROINTESTINAL Hx Crohn's Disease: No Hx Diverticulitis: No Hx Gall Bladder Disease: No Hx Pancreatitis: No - GENITOURINARY/GYNECOLOGICAL Hx Sexually Transmitted Disorders: No - PSYCHIATRIC Hx Anxiety: Yes Hx Bipolar Disorder: No Hx Depression: Yes Hx Paranoia: No Hx Post Traumatic Stress Disorder: No Hx Schizophrenia: No Hx Substance Use: No - SURGICAL HISTORY Hx Appendectomy: Yes Hx Cholecystectomy: No Hx Coronary Stent: No - ANESTHESIA Hx Anesthesia: No Hx Anesthesia Reactions: No Hx Malignant Hyperthermia: No Meds Allergies/Adverse Reactions: Allergies Allergy/AdvReac Type Severity Reaction Status Date / Time aspirin Allergy RASH Verified 01/05/19 19:00 ibuprofen Allergy RASH Verified 01/05/19 19:00 iodine Allergy RASH Verified 01/05/19 19:00 ketorolac [From Toradol] Allergy RASH Verified 01/05/19 19:00 - Medications Medications: Current Medications Acetaminophen (Tylenol 325mg Tab) 650 mg PO Q6 PRN PRN Reason: Pain, moderate (4-7) Enoxaparin Sodium (Lovenox) 40 mg SC DAILY [facility] Last Admin: 01/05/19 09:23 Dose: 40 mg Sodium Chloride (Sodium Chloride 0.9%) 1,000 mls @ 100 mls/hr IV .Q10H [facility] Lamotrigine (Lamictal) 100 mg PO BID [facility] Last Admin: 01/05/19 09:22 Dose: 100 mg Pantoprazole Sodium (Protonix Ec Tab) 40 mg PO DAILY [facility] Last Admin: 01/05/19 09:22 Dose: 40 mg Physical Exam - Head Exam Head Exam: ATRAUMATIC, NORMAL INSPECTION, NORMOCEPHALIC - Eye Exam Eye Exam: EOMI Pupil Exam: PERRL - ENT Exam ENT Exam: Mucous Membranes Moist - Respiratory Exam Respiratory Exam: Clear to Auscultation Bilateral, NORMAL BREATHING PATTERN. absent: Rales, Rhonchi, Wheezes, Respiratory Distress, Stridor - Cardiovascular Exam Cardiovascular Exam: REGULAR RHYTHM, +S1, +S2. absent: Irregular Rhythm, Systolic Murmur - GI/Abdominal Exam GI & Abdominal Exam: Normal Bowel Sounds, Soft. absent: Organomegaly, Rebound, Rigid, Tenderness - Extremities Exam Extremities exam: Positive for: normal inspection - Neurological Exam Neurological exam: Alert, CN II-XII Intact Additional comments: reflexes b/l knees normal able to move b/l LE legs Results - Vital Signs Recent Vital Signs: Last Vital Signs Temp 98.3 F 01/05/19 07:00 Pulse 70 01/05/19 11:12 Resp 20 01/05/19 07:00 BP 96/59 L 01/05/19 11:12 Pulse Ox 98 01/05/19 07:00 - Labs Result Diagrams: 01/04/19 16:59 01/04/19 07:32 Labs: Laboratory Results - last 24 hr 05/17/19 05/17/19 05/17/19 16:21 16:59 16:59 WBC 5.2 RBC 3.82 Hgb 11.5 Hct 34.5 MCV 90.2 D MCH 30.2 MCHC 33.5 RDW 15.0 H Plt Count 282 MPV 7.8 Neut % (Auto) 40.0 L Lymph % (Auto) 45.9 H [place] % (Auto) 9.4 Eos % (Auto) 3.4 Baso % (Auto) 1.3 Neut # (Auto) 2.1 Lymph # (Auto) 2.4 [place] # (Auto) 0.5 Eos # (Auto) 0.2 Baso # (Auto) 0.1 Puncture Site pCO2 pO2 HCO3 ABG pH ABG Total CO2 ABG O2 Saturation ABG Base Excess Quirino Test ABG Potassium Sodium Chloride Glucose Lactate Liter Flow POC Glucose (mg/dL) 96 Total Creatine Kinase 133 CK-MB (Mass) 1.09 Troponin I < 0.0120 NT-Pro-B Natriuret Pep Arterial Blood Potassium 01/05/19 01/05/19 11:15 11:19 WBC RBC Hgb Hct MCV MCH MCHC RDW Plt Count MPV Neut % (Auto) Lymph % (Auto) [place] % (Auto) Eos % (Auto) Baso % (Auto) Neut # (Auto) Lymph # (Auto) [place] # (Auto) Eos # (Auto) Baso # (Auto) Puncture Site Lb pCO2 29 L pO2 123 H HCO3 26.3 ABG pH 7.52 H ABG Total CO2 24.6 ABG O2 Saturation 100.5 H ABG Base Excess 1.7 Qu[place]ino Test Pos ABG Potassium 3.8 Sodium 140.0 Chloride 113.0 H Glucose 123 H Lactate 0.7 Liter Flow 2.5 POC Glucose (mg/dL) Total Creatine Kinase CK-MB (Mass) Troponin I < 0.0120 NT-Pro-B Natriuret Pep 158 Arterial Blood Potassium 3.8 Assessment & Plan - Assessment and Plan (Free Text) Assessment: Hypotension: suspect 2nd combination of morphine + flexaril -please hold flexaril -CT reveals constipation -check Utox -pain consult -please obtain MRI report (pending) -neurology follo wu as patient has h/o seizures, avoid medications which decrease seizure threshold. Addendum: BP imporved with MAP >65, not requring any pressors -Please call ICU if patient's clinical status worsens. - Date & Time Date: 01/05/19 Time: 17:00
[2019-01-05 15:29] LABS: BARBITURATES, UR NEGATIVE (NEGATIVE); BENZODIAZEPINES, UR NEGATIVE (NEGATIVE); PHENCYCLIDINE, UR NEGATIVE (NEGATIVE)
[2019-01-05 15:35] LABS: OPIATES, UR POSITIVE (NEGATIVE)
--- NOTE | 2019-01-05 23:25 | CP.PCM.PN ---
Subjective - Date & Time of Evaluation Date of Evaluation: 01/05/19 - Subjective Subjective: no c/o vomiting, no diarrhea, no fever Objective - Vital Signs/Intake and Output Vital Signs (last 24 hours): Temp Pulse Resp BP Pulse Ox 98.6 F 85 22 110/58 L 100 01/05/19 18:09 01/05/19 18:09 01/05/19 18:09 01/05/19 18:09 01/05/19 18:09 Intake and Output: 01/05/19 01/06/19 18:59 06:59 Intake Total 3500 Balance 3500 - Medications Medications: Current Medications Acetaminophen (Tylenol 325mg Tab) 650 mg PO Q6 PRN PRN Reason: Pain, moderate (4-7) Last Admin: 01/05/19 22:22 Dose: 650 mg Enoxaparin Sodium (Lovenox) 40 mg SC DAILY [facility] Last Admin: 01/05/19 09:23 Dose: 40 mg Hydromorphone HCl (Dilaudid) 2 mg PO Q6 PRN PRN Reason: Pain, severe (8-10) Sodium Chloride (Sodium Chloride 0.9%) 1,000 mls @ 100 mls/hr IV .Q10H [facility] Last Admin: 01/05/19 22:18 Dose: 100 mls/hr Lamotrigine (Lamictal) 100 mg PO BID [facility] Last Admin: 01/05/19 18:17 Dose: 100 mg Pantoprazole Sodium (Protonix Ec Tab) 40 mg PO DAILY [facility] Last Admin: 01/05/19 09:22 Dose: 40 mg - Labs Labs: 01/04/19 16:59 01/04/19 07:32 - Constitutional Appears: Well - Head Exam Head Exam: ATRAUMATIC, NORMAL INSPECTION, NORMOCEPHALIC - Eye Exam Eye Exam: EOMI, Normal appearance, PERRL Pupil Exam: NORMAL ACCOMODATION, PERRL - ENT Exam ENT Exam: Mucous Membranes Moist, Normal Exam - Neck Exam Neck Exam: Full ROM, Normal Inspection. absent: Lymphadenopathy - Respiratory Exam Respiratory Exam: Decreased Breath Sounds - Cardiovascular Exam Cardiovascular Exam: REGULAR RHYTHM, +S1, +S2 - GI/Abdominal Exam GI & Abdominal Exam: Soft, Diminished Bowel Sounds - Rectal Exam Rectal Exam: Deferred - Neurological Exam Neurological Exam: Oriented x3 Assessment and Plan (1) Herniated disc Status: Acute (2) Intractable back pain Status: Acute (3) Intractable pain Status: Acute (4) Low back pain Status: Acute (5) Muscle spasm Status: Acute (6) Neck pain Status: Acute (7) Seizure Status: Chronic (8) Anxiety and depression Status: Acute (9) Dyspnea on effort Status: Acute (10) Seizure Status: Acute - Assessment and Plan (Free Text) Plan: Tylenol Lovenox Dilaudid Lamictal Protonix Moderate to high complexity of care. Plan of care discussed with patient &/or family & staff. Medications reviewed and reconciled. Labs reviewed. Vitals reviewed.
[2019-01-06] MEDS: Sodium Chloride 0.9% 1,000 ML IV SCH ×3 (09:18→20:30)
[2019-01-06] MEDS: Enoxaparin 40 mg Syringe SC SCH (09:21)
[2019-01-06] MEDS: Pantoprazole 40 mg EC Tab PO SCH (09:21)
--- NOTE | 2019-01-06 09:26 | CP.PCM.CON ---
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 Home Situation {Lives}: With Family Domestic Violence: Negative - CARDIAC Hx Cardia Arrhythmia: No Hx Congestive Heart Failure: No Hx Hypercholesterolemia: No Hx Hypertension: No Hx Mitral Valve Prolapse: No Hx Pacemaker: No Hx Peripheral Edema: No - PULMONARY Hx Asthma: No Hx Bronchitis: No Hx Chronic Obstructive Pulmonary Disease (COPD): No Hx Emphysema: No Hx Pneumonia: No Hx Sleep Apnea: No - NEUROLOGICAL Hx Alzheimer's Disease: No Hx Dementia: No Hx Migraine: No Hx Parkinson's Disease: No Hx Seizures: Yes Hx Transient Ischemic Attacks (TIA): No - HEENT Hx HEENT Problems: No - RENAL Hx Chronic Kidney Disease: No Hx Kidney Stones: No - ENDOCRINE/METABOLIC Hx Hyperthyroidism: No Hx Hypothyroidism: No - HEMATOLOGICAL/ONCOLOGICAL Hx Anemia: No Hx Human Immunodeficiency Virus (HIV): No Hx Sickle Cell Disease: No - INTEGUMENTARY Hx Dermatological Problems: No - MUSCULOSKELETAL/RHEUMATOLOGICAL Hx Musculoskeletal Disorders: Yes Hx Arthritis: Yes Hx Back Pain: Yes Hx Herniated Disk: Yes (pt unsure of location of herniation) - GASTROINTESTINAL Hx Crohn's Disease: No Hx Diverticulitis: No Hx Gall Bladder Disease: No Hx Pancreatitis: No - GENITOURINARY/GYNECOLOGICAL Hx Sexually Transmitted Disorders: No - PSYCHIATRIC Hx Anxiety: Yes Hx Bipolar Disorder: No Hx Depression: Yes Hx Paranoia: No Hx Post Traumatic Stress Disorder: No Hx Schizophrenia: No Hx Substance Use: No - SURGICAL HISTORY Hx Appendectomy: Yes Hx Cholecystectomy: No Hx Coronary Stent: No - ANESTHESIA Hx Anesthesia: No Hx Anesthesia Reactions: No Hx Malignant Hyperthermia: No Meds Allergies/Adverse Reactions: Allergies Allergy/AdvReac Type Severity Reaction Status Date / Time aspirin Allergy RASH Verified 01/05/19 19:00 ibuprofen Allergy RASH Verified 01/05/19 19:00 iodine Allergy RASH Verified 01/05/19 19:00 ketorolac [From Toradol] Allergy RASH Verified 01/05/19 19:00 - Medications Medications: Current Medications Acetaminophen (Tylenol 325mg Tab) 650 mg PO Q6 PRN PRN Reason: Pain, moderate (4-7) Last Admin: 01/06/19 09:21 Dose: 650 mg Enoxaparin Sodium (Lovenox) 40 mg SC DAILY [facility] Last Admin: 01/06/19 09:21 Dose: 40 mg Hydromorphone HCl (Dilaudid) 2 mg PO Q6 PRN PRN Reason: Pain, severe (8-10) Last Admin: 01/06/19 05:24 Dose: 2 mg Sodium Chloride (Sodium Chloride 0.9%) 1,000 mls @ 100 mls/hr IV .Q10H [facility] Last Admin: 01/06/19 09:18 Dose: 100 mls/hr Lamotrigine (Lamictal) 100 mg PO BID [facility] Last Admin: 01/06/19 09:21 Dose: 100 mg Pantoprazole Sodium (Protonix Ec Tab) 40 mg PO DAILY [facility] Last Admin: 01/06/19 09:21 Dose: 40 mg Results - Vital Signs Recent Vital Signs: Last Vital Signs Temp 98 F 01/06/19 06:00 Pulse 61 01/06/19 07:32 Resp 20 01/06/19 06:00 BP 105/56 L 01/06/19 06:00 Pulse Ox 99 01/06/19 06:00 - Labs Result Diagrams: 01/04/19 16:59 01/04/19 07:32 Labs: Laboratory Results - last 24 hr 01/05/19 01/05/19 01/05/19 11:15 11:19 15:04 Puncture Site Lb pCO2 29 L pO2 123 H HCO3 26.3 ABG pH 7.52 H ABG Total CO2 24.6 ABG O2 Saturation 100.5 H ABG Base Excess 1.7 Quirino Test Pos ABG Potassium 3.8 Sodium 140.0 Chloride 113.0 H Glucose 123 H Lactate 0.7 Liter Flow 2.5 Troponin I < 0.0120 NT-Pro-B Natriuret Pep 158 Arterial Blood Potassium 3.8 Urine Opiates Screen Positive H Urine Methadone Screen Negative Ur Barbiturates Screen Negative Ur Phencyclidine Scrn Negative Ur Amphetamines Screen Negative U Benzodiazepines Scrn Negative U Oth Cocaine Metabols Negative U Cannabinoids Screen Negative
--- NOTE | 2019-01-06 10:44 | CT ---
Date of service: 01/05/2019 CT chest without IV contrast Indication: eval back pain Technique: Contiguous axial images were obtained through the chest without intravenous contrast enhancement. Sagittal and coronal reconstructions were generated and reviewed. This CT exam was performed using 1 or more of the following dose reduction techniques: Automated exposure control, adjustment of the MAA and/or kV according to patient size, and/or use of iterative reconstruction technique. Radiation dose (DLP): 323.28 MGy-cm. Comparison: Chest x-ray performed 01/05/19 Findings: Evaluation limited by motion. Visualized portions of the inferior thyroid gland appear unremarkable. The unenhanced mediastinal and hilar vascular structures appear grossly unremarkable. The heart appears within normal limits of size. No focal consolidation. No pleural effusion. No pneumothorax. No suspicious pulmonary nodules measuring greater than 5 mm. Limited visualization of the noncontrast upper abdomen demonstrates questionable haziness about the pancreas favored artifactual secondary to patient motion. Correlate with amylase and lipase in order to exclude possibility of acute pancreatitis. Osseous demineralization. Mild degenerative changes of the spine. Impression: No focal consolidation, pleural effusion, or pneumothorax. Questionable haziness noted about the pancreas favored artifactual secondary to patient motion. Recommend correlation with amylase and lipase in order to exclude possibility of acute pancreatitis. Osseous demineralization. Mild degenerative changes of the spine. Preliminary impression was provided by [employer].
[2019-01-06 11:02] LABS: PARTIAL THROMBOPLASTIN TIME 37.1 SECONDS (21-34); PROTHROMBIN TIME 11.3 SECONDS (9.7-12.2)
--- NOTE | 2019-01-06 11:13 | CP.PCM.PN ---
Subjective - Date & Time of Evaluation Date of Evaluation: 01/06/19 - Subjective Subjective: no c/o vomiting, no diarrhea, no fever Objective - Vital Signs/Intake and Output Vital Signs (last 24 hours): Temp Pulse Resp BP Pulse Ox 98 F 61 20 105/56 L 99 01/06/19 06:00 01/06/19 07:32 01/06/19 06:00 01/06/19 06:00 01/06/19 06:00 Intake and Output: 01/06/19 01/06/19 06:59 18:59 Intake Total 1970 Balance 1970 - Medications Medications: Current Medications Acetaminophen (Tylenol 325mg Tab) 650 mg PO Q6 PRN PRN Reason: Pain, moderate (4-7) Last Admin: 01/06/19 09:21 Dose: 650 mg Enoxaparin Sodium (Lovenox) 40 mg SC DAILY [facility] Last Admin: 01/06/19 09:21 Dose: 40 mg Hydromorphone HCl (Dilaudid) 2 mg PO Q6 PRN PRN Reason: Pain, severe (8-10) Last Admin: 01/06/19 05:24 Dose: 2 mg Sodium Chloride (Sodium Chloride 0.9%) 1,000 mls @ 100 mls/hr IV .Q10H [facility] Last Admin: 01/06/19 09:18 Dose: 100 mls/hr Lamotrigine (Lamictal) 100 mg PO BID [facility] Last Admin: 01/06/19 09:21 Dose: 100 mg Pantoprazole Sodium (Protonix Ec Tab) 40 mg PO DAILY [facility] Last Admin: 01/06/19 09:21 Dose: 40 mg - Labs Labs: 01/04/19 16:59 01/04/19 07:32 PT 11.3 SECONDS (9.7-12.2) 01/06/19 10:47 INR 1.0 01/06/19 10:47 APTT 37.1 SECONDS (21-34) H 01/06/19 10:47 - Constitutional Appears: Well - Head Exam Head Exam: ATRAUMATIC, NORMAL INSPECTION, NORMOCEPHALIC - Eye Exam Eye Exam: EOMI, Normal appearance, PERRL Pupil Exam: NORMAL ACCOMODATION, PERRL - ENT Exam ENT Exam: Mucous Membranes Moist, Normal Exam - Neck Exam Neck Exam: Full ROM, Normal Inspection. absent: Lymphadenopathy - Respiratory Exam Respiratory Exam: Decreased Breath Sounds - Cardiovascular Exam Cardiovascular Exam: REGULAR RHYTHM, +S1, +S2 - GI/Abdominal Exam GI & Abdominal Exam: Soft, Diminished Bowel Sounds - Rectal Exam Rectal Exam: Deferred - Neurological Exam Neurological Exam: Oriented x3 Assessment and Plan (1) Herniated disc Status: Acute (2) Intractable back pain Status: Acute (3) Intractable pain Status: Acute (4) Low back pain Status: Acute (5) Muscle spasm Status: Acute (6) Neck pain Status: Acute (7) Seizure Status: Chronic (8) Anxiety and depression Status: Acute (9) Dyspnea on effort Status: Acute (10) Seizure Status: Acute - Assessment and Plan (Free Text) Plan: Tylenol Lovenox Dilaudid Lamictal Protonix Moderate to high complexity of care. Plan of care discussed with patient &/or family & staff. Medications reviewed and reconciled. Labs reviewed. Vitals reviewed.
--- NOTE | 2019-01-06 11:29 | MRI ---
Date of service: 01/05/2019 PROCEDURE: MR CERVICAL SPINE WITHOUT CONTRAST HISTORY: intractable neck pain COMPARISON: None available. TECHNIQUE: Multiecho multiplanar sequences were performed through the cervical spine without the use of intravenous contrast. FINDINGS: Normal lordotic curvature. Craniocervical junction unremarkable. Vertebral body heights preserved. No marrow signal abnormality. Normal cervical cord. No paraspinal abnormality. C2-C3: No disc herniation, spinal canal stenosis or neural foraminal narrowing. C3-C4: No disc herniation, spinal canal stenosis or neural foraminal narrowing. C4-C5: No disc herniation, spinal canal stenosis or neural foraminal narrowing. C5-C6: Moderate size left paracentral disc herniation at C5-6 with minimal cord flattening. There is also left-sided foraminal stenosis C6-C7: Mild disc degeneration with a small radial tear in the outer fibers of the annulus C7-T1: Small central disc protrusion at C6-7 OTHER FINDINGS: The report concurs with the preliminary [facility] report IMPRESSION: Moderate size left paracentral disc herniation at C5-6 with minimal cord flattening. There is also left-sided foraminal stenosis
--- NOTE | 2019-01-06 11:35 | MRI ---
Date of service: 01/05/2019 PROCEDURE: MR THORACIC SPINE WITHOUT CONTRAST HISTORY: intractable back pain COMPARISON: None available. TECHNIQUE: Multiecho multiplanar sequences were performed through the thoracic spine without the use of intravenous contrast. FINDINGS: ALIGNMENT: Normal thoracic spinal alignment. Normal thoracic kyphosis. VERTEBRA: Vertebral body height are preserved. MARROW: Marrow signal unremarkable. PARASPINAL SOFT TISSUES: Unremarkable. CORD: Unremarkable thoracic cord. No volume loss, signal abnormality or syrinx. DISCS: Small left paracentral disc protrusions can be seen at T8-9 and T9-10. Small central protrusion at T7-8. Small left-sided protrusion at T5-6 with minimal flattening of the cord OTHER FINDINGS: The report concurs with the preliminary [facility] report IMPRESSION: Small multilevel disc protrusions as described above. No evidence of vertebral compression fracture
--- NOTE | 2019-01-06 11:37 | MRI ---
Date of service: 01/05/2019 PROCEDURE: MR LUMBAR SPINE WITHOUT CONTRAST HISTORY: intractable low back pain COMPARISON: None available. TECHNIQUE: Multiecho multiplanar sequences were performed through the lumbar spine without the use of intravenous contrast. FINDINGS: Normal lumbar lordosis. Vertebral body heights are preserved. Marrow signal unremarkable. Conus medullaris unremarkable at the level of Paraspinal soft tissues are unremarkable. T12-L1: No disc herniation, spinal canal stenosis or neural foraminal narrowing. L1-2: No disc herniation, spinal canal stenosis or neural foraminal narrowing. L2-3: No disc herniation, spinal canal stenosis or neural foraminal narrowing. L3-4: No disc herniation, spinal canal stenosis or neural foraminal narrowing. L4-5: No disc herniation, spinal canal stenosis or neural foraminal narrowing. L5-S1: Small radial tear in the outer fibers of the annulus. Mild disc bulge OTHER FINDINGS: No significant discrepancy with the [employer] [facility] report IMPRESSION: Mild disc degeneration at L5-S1. No evidence of disc herniation or spinal stenosis
--- NOTE | 2019-01-06 15:41 | CP.PCM.CON ---
History of Present Illness - History of Present Illness History of Present Illness: CC: Preop Clearence HPI: 58 year old female with severe cervical disc herniation for OR. Pateint reports she can perform >4 METS daily. Denies angina. she is reporting severe seizure several days ago. occured in the setting of epilepsy, not medication is suppressing seizures. 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 Home Situation {Lives}: With Family Domestic Violence: Negative - CARDIAC Hx Cardia Arrhythmia: No Hx Congestive Heart Failure: No Hx Hypercholesterolemia: No Hx Hypertension: No Hx Mitral Valve Prolapse: No Hx Pacemaker: No Hx Peripheral Edema: No - PULMONARY Hx Asthma: No Hx Bronchitis: No Hx Chronic Obstructive Pulmonary Disease (COPD): No Hx Emphysema: No Hx Pneumonia: No Hx Sleep Apnea: No - NEUROLOGICAL Hx Alzheimer's Disease: No Hx Dementia: No Hx Migraine: No Hx Parkinson's Disease: No Hx Seizures: Yes Hx Transient Ischemic Attacks (TIA): No - HEENT Hx HEENT Problems: No - RENAL Hx Chronic Kidney Disease: No Hx Kidney Stones: No - ENDOCRINE/METABOLIC Hx Hyperthyroidism: No Hx Hypothyroidism: No - HEMATOLOGICAL/ONCOLOGICAL Hx Anemia: No Hx Human Immunodeficiency Virus (HIV): No Hx Sickle Cell Disease: No - INTEGUMENTARY Hx Dermatological Problems: No - MUSCULOSKELETAL/RHEUMATOLOGICAL Hx Musculoskeletal Disorders: Yes Hx Arthritis: Yes Hx Back Pain: Yes Hx Herniated Disk: Yes (pt unsure of location of herniation) - GASTROINTESTINAL Hx Crohn's Disease: No Hx Diverticulitis: No Hx Gall Bladder Disease: No Hx Pancreatitis: No - GENITOURINARY/GYNECOLOGICAL Hx Sexually Transmitted Disorders: No - PSYCHIATRIC Hx Anxiety: Yes Hx Bipolar Disorder: No Hx Depression: Yes Hx Paranoia: No Hx Post Traumatic Stress Disorder: No Hx Schizophrenia: No Hx Substance Use: No - SURGICAL HISTORY Hx Appendectomy: Yes Hx Cholecystectomy: No Hx Coronary Stent: No - ANESTHESIA Hx Anesthesia: No Hx Anesthesia Reactions: No Hx Malignant Hyperthermia: No Meds Allergies/Adverse Reactions: Allergies Allergy/AdvReac Type Severity Reaction Status Date / Time aspirin Allergy RASH Verified 01/05/19 19:00 ibuprofen Allergy RASH Verified 01/05/19 19:00 iodine Allergy RASH Verified 01/05/19 19:00 ketorolac [From Toradol] Allergy RASH Verified 01/05/19 19:00 - Medications Medications: Current Medications Acetaminophen (Tylenol 325mg Tab) 650 mg PO Q6 PRN PRN Reason: Pain, moderate (4-7) Last Admin: 01/06/19 09:21 Dose: 650 mg Enoxaparin Sodium (Lovenox) 40 mg SC DAILY [facility] Last Admin: 01/06/19 09:21 Dose: 40 mg Hydromorphone HCl (Dilaudid) 2 mg PO Q6 PRN PRN Reason: Pain, severe (8-10) Last Admin: 01/06/19 11:56 Dose: 2 mg Sodium Chloride (Sodium Chloride 0.9%) 1,000 mls @ 100 mls/hr IV .Q10H [facility] Last Admin: 01/06/19 09:18 Dose: 100 mls/hr Lamotrigine (Lamictal) 100 mg PO BID [facility] Last Admin: 01/06/19 09:21 Dose: 100 mg Pantoprazole Sodium (Protonix Ec Tab) 40 mg PO DAILY [facility] Last Admin: 01/06/19 09:21 Dose: 40 mg Physical Exam - Constitutional Appears: Well, Non-toxic - Head Exam Head Exam: ATRAUMATIC, NORMAL INSPECTION - Eye Exam Eye Exam: PERRL. absent: Scleral icterus - ENT Exam ENT Exam: Mucous Membranes Dry, Mucous Membranes Moist, Normal External Ear Exam - Neck Exam Neck exam: Negative for: Lymphadenopathy, Thyromegaly - Respiratory Exam Respiratory Exam: Clear to Auscultation Bilateral, NORMAL BREATHING PATTERN - Cardiovascular Exam Cardiovascular Exam: REGULAR RHYTHM, RRR, +S1, +S2. absent: JVD - GI/Abdominal Exam GI & Abdominal Exam: Normal Bowel Sounds. absent: Organomegaly - Extremities Exam Extremities exam: Negative for: calf tenderness, pedal edema - Neurological Exam Neurological exam: CN II-XII Intact, Oriented x3 - Psychiatric Exam Psychiatric exam: Normal Affect, Normal Mood Results - Vital Signs Recent Vital Signs: Last Vital Signs Temp 98 F 01/06/19 06:00 Pulse 67 01/06/19 11:27 Resp 20 01/06/19 06:00 BP 105/56 L 01/06/19 06:00 Pulse Ox 99 01/06/19 06:00 - Labs Result Diagrams: 01/04/19 16:59 01/04/19 07:32 Labs: Laboratory Results - last 24 hr 01/06/19 10:47 PT 11.3 INR 1.0 APTT 37.1 H - EKG Data EKG Interpreted by: Myself EKG shows normal: Sinus rhythm Rate: Normal - Imaging and Cardiology Chest x-ray Status: Image reviewed by me Additional comment: Interstitial lung disease Assessment & Plan - Assessment and Plan (Free Text) Assessment: 58 year old female with cervical disc hernitation for OR. SHE IS ACCEPTABLE RISK FOR SURGERY. SHE DOES NOT REQUIRE ANY FURTHER CARDIAC WORK UP. Epilsepsy no seizures today on lamictal COPD chronic and stable we discussed the benefits of tobacco cessation - Date & Time Date: 01/06/19 Time: 15:42
[2019-01-07] MEDS: Sodium Chloride 0.9% 1,000 ML IV SCH ×2 (06:13→22:27)
--- NOTE | 2019-01-07 06:58 | CON ---
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 She has had sudden onset of severe weakness. She was seen in the [facility] ER and admitted. She subsequently underwent workup, which showed a significant cervical disk herniation with spinal cord compression. Neurosurgical evaluation was requested. she states she has unusual feeling throughout her entire body. She feels she has some weakness in both arms and both legs. Seems to be somewhat worse on the left side. She denies any bowel or bladder dysfunction. PAST MEDICAL HISTORY: Most significant for a seizure disorder. The rest of her past medical history, medications, and allergies all reviewed in the EMR. PHYSICAL EXAMINATION: GENERAL: She does have 5/5 strength throughout with some exception of her left proximal lower extremity, which seems to be somewhat weak. Proprioception is intact throughout. Her reflexes are clearly increased throughout biceps, through ankle jerks, although Collette's bilaterally are negative. Plantars are equivocal bilaterally. Did not test her gait. LABORATORY DATA: MRI of the lumbar spine shows an annular tear at L5-S1. Thoracic spine does show multiple herniations with some degree of canal stenosis but no overt cord compromise. The MRI of the cervical spine shows a disk herniation at C5-C6 with extensive clearly impacting the performance of the spinal cord. IMPRESSION AND PLAN: I had a very long talk with this patient. I explained to her the significance of this disk herniation with spinal cord compression and how it relates to her current symptoms. We also discussed potential risks, the paralysis with subsequent injury such as slip and fall, motor vehicle accident, etc. Therefore, I suggested to her anterior diskectomy with fixation and fusion. I discussed the nature of this procedure with her, the rationale behind it, details of the surgery itself, potential risks and complications, realistic chance of success and recovery time. I answered all the questions. She understood and stated she would like to go ahead with the suggested procedure and hopefully we can have her scheduled within the next 48 hours. Neil Staton MD [facility] # [id number]
--- NOTE | 2019-01-07 07:43 | CP.PCM.PN ---
Subjective - Date & Time of Evaluation Date of Evaluation: 01/07/19 Time of Evaluation: 07:41 - Subjective Subjective: PGY2 Progress Note for Dr. Cal Mcgrath. Patient seen and examined at bedside. Patient still reporting back pain on today's examination. Patient expected to go to the O.R. today for disectomy. Objective - Vital Signs/Intake and Output Vital Signs (last 24 hours): Temp Pulse Resp BP Pulse Ox 98.9 F 62 20 145/70 99 01/06/19 23:00 01/07/19 00:00 01/06/19 23:00 01/06/19 23:00 01/06/19 23:00 Intake and Output: 01/07/19 01/07/19 06:59 18:59 Intake Total 1100 Balance 1100 - Medications Medications: Current Medications Acetaminophen (Tylenol 325mg Tab) 650 mg PO Q6 PRN PRN Reason: Pain, moderate (4-7) Last Admin: 01/06/19 09:21 Dose: 650 mg Hydromorphone HCl (Dilaudid) 2 mg PO Q6 PRN PRN Reason: Pain, severe (8-10) Last Admin: 01/07/19 06:10 Dose: 2 mg Sodium Chloride (Sodium Chloride 0.9%) 1,000 mls @ 100 mls/hr IV .Q10H [facility] Last Admin: 01/07/19 06:13 Dose: 100 mls/hr Lamotrigine (Lamictal) 100 mg PO BID [facility] Last Admin: 01/06/19 17:39 Dose: 100 mg Pantoprazole Sodium (Protonix Ec Tab) 40 mg PO DAILY [facility] Last Admin: 01/06/19 09:21 Dose: 40 mg - Labs Labs: 01/04/19 16:59 01/04/19 07:32 PT 11.3 SECONDS (9.7-12.2) 01/06/19 10:47 INR 1.0 01/06/19 10:47 APTT 37.1 SECONDS (21-34) H 01/06/19 10:47 - Head Exam Head Exam: ATRAUMATIC, NORMAL INSPECTION - Eye Exam Eye Exam: EOMI, Normal appearance, PERRL Pupil Exam: NORMAL ACCOMODATION, PERRL - ENT Exam ENT Exam: Mucous Membranes Moist - Cardiovascular Exam Cardiovascular Exam: REGULAR RHYTHM, +S1, +S2 - GI/Abdominal Exam GI & Abdominal Exam: Soft, Normal Bowel Sounds - Neurological Exam Neurological Exam: Awake, CN II-XII Intact, Oriented x3 - Psychiatric Exam Psychiatric exam: Normal Affect, Normal Mood - Skin Skin Exam: Dry, Intact, Warm Assessment and Plan - Assessment and Plan (Free Text) Plan: 58 year old female with a past medical history of seizures, herniated discs and back pain admitted for intractable pain. Plan: 1.Intractable pain Hx of herniated dics and chronic back pain. Flexeril and Morphine given in the E.D. Neurology Dr. Spangler consulted--> Help appreciated Cervical spine MRI:Moderate size left paracentral disc herniation at C5-6 with minimal cord flattening. There is also left-sided foraminal stenosis Thoracic spine MRI:Moderate size left paracentral disc herniation at C5-6 with minimal cord flattening. There is also left-sided foraminal stenosis Lumbar spine MRI: Mild disc degeneration at L5-S1. No evidence of disc herniation or spinal stenosis Neurosurgery Dr. Staton consulted--> Help appreciated. :arge cevical HNP w cord compression signs of myelopathy rec discectomy /fusion D/W Pt , agreeable Cardiology Dr. Watson consulted for surgery clearance :Patient medically cleared for O.R. Medications: Morphine 4mg IVP Q6 PRN Flexeril 5mg PO TID 2.hx of Seizures Head ct: no active disease -Continue Lamotrigine 100mg PO BID ppx Protonix Lovenox Dispo: Patient expected to have disectomy procedure today. Plan discussed with Attending Dr. Cal De La Cruz, PGY-2
[2019-01-07] MEDS: Pantoprazole 40 mg EC Tab PO SCH (09:07)
--- NOTE | 2019-01-07 09:53 | CP.PCM.PN ---
Subjective - Date & Time of Evaluation Date of Evaluation: 01/07/19 Time of Evaluation: 07:15 - Subjective Subjective: denies seizure still sevre pain on back Objective - Vital Signs/Intake and Output Vital Signs (last 24 hours): Temp Pulse Resp BP Pulse Ox 98.5 F 62 18 125/68 100 01/07/19 07:00 01/07/19 07:38 01/07/19 07:00 01/07/19 07:00 01/07/19 07:00 Intake and Output: 01/07/19 01/07/19 06:59 18:59 Intake Total 1999 Balance 1999 - Medications Medications: Current Medications Acetaminophen (Tylenol 325mg Tab) 650 mg PO Q6 PRN PRN Reason: Pain, moderate (4-7) Last Admin: 01/06/19 09:21 Dose: 650 mg Hydromorphone HCl (Dilaudid) 2 mg PO Q6 PRN PRN Reason: Pain, severe (8-10) Last Admin: 01/07/19 06:10 Dose: 2 mg Sodium Chloride (Sodium Chloride 0.9%) 1,000 mls @ 100 mls/hr IV .Q10H [facility] Last Admin: 01/07/19 06:13 Dose: 100 mls/hr Lamotrigine (Lamictal) 100 mg PO BID [facility] Last Admin: 01/07/19 09:06 Dose: 100 mg Pantoprazole Sodium (Protonix Ec Tab) 40 mg PO DAILY [facility] Last Admin: 01/07/19 09:07 Dose: 40 mg - Labs Labs: 01/04/19 16:59 01/04/19 07:32 PT 11.3 SECONDS (9.7-12.2) 01/06/19 10:47 INR 1.0 01/06/19 10:47 APTT 37.1 SECONDS (21-34) H 01/06/19 10:47 - Constitutional Appears: Well - Head Exam Head Exam: ATRAUMATIC, NORMAL INSPECTION, NORMOCEPHALIC - Eye Exam Eye Exam: EOMI, Normal appearance, PERRL Pupil Exam: NORMAL ACCOMODATION, PERRL - ENT Exam ENT Exam: Mucous Membranes Moist, Normal Exam - Neck Exam Neck Exam: Full ROM, Normal Inspection. absent: Lymphadenopathy - Respiratory Exam Respiratory Exam: Decreased Breath Sounds - Cardiovascular Exam Cardiovascular Exam: REGULAR RHYTHM, +S1, +S2 - GI/Abdominal Exam GI & Abdominal Exam: Soft, Diminished Bowel Sounds - Rectal Exam Rectal Exam: Deferred - Neurological Exam Neurological Exam: Oriented x3 Assessment and Plan (1) Herniated disc Status: Acute (2) Intractable back pain Status: Acute (3) Intractable pain Status: Acute (4) Low back pain Status: Acute (5) Muscle spasm Status: Acute (6) Neck pain Status: Acute (7) Seizure Status: Chronic (8) Anxiety and depression Status: Acute (9) Dyspnea on effort Status: Acute (10) Seizure Status: Acute - Assessment and Plan (Free Text) Plan: pt medically stable for clearance Tylenol Dilaudid Lamictal Protonix Moderate to high complexity of care. Plan of care discussed with patient &/or family & staff. Medications reviewed and reconciled. Labs reviewed. Vitals reviewed.
[2019-01-07] MEDS ORDERED: Sodium Chloride 0.9% 20 ML IV ONE (11:28)
[2019-01-07] MEDS ORDERED: Lidocaine/Epinephrine 1% 1:100000 10 ML IJ ONE (11:29)
[2019-01-07] MEDS ORDERED: Absorbable Gelatin Sponge Size 12-7 ONE (11:29)
[2019-01-07] MEDS ORDERED: Thrombin Topical 5,000 Int Units Spray Kit ONE (11:29)
[2019-01-07] MEDS ORDERED: Absorbable Gelatin Sponge Size 100 ONE (11:31)
[2019-01-07] MEDS ORDERED: Bupivacaine Liposomal Inj 20 ml INFIL ONE (11:41)
[2019-01-07] MEDS ORDERED: Bacitracin 50,000 UNIT in Sodium Chloride 0.9% Irrig 1,000 ML IR SCH (11:45)
[2019-01-07] MEDS ORDERED: Bupivacaine HCl 0.5% PF (10 ml) Inj ONE (13:15)
[2019-01-07] MEDS ORDERED: ceFAZolin 1 gm in NS 2 GM/200 ML BAG IVPB ONE (13:15)
[2019-01-07] MEDS ORDERED: Propofol 10 mg/ml Inj (20 ML) ONE ×2 (13:19→14:19)
[2019-01-07] MEDS ORDERED: Lidocaine Hydrochloride 5 ML INJ ONE (13:19)
[2019-01-07] MEDS ORDERED: Succinylcholine Chloride 20 mg/ml Syr (5 ml) IV ONE (13:19)
[2019-01-07] MEDS ORDERED: Midazolam 2 MG/2 ML VIAL ONE (13:19)
[2019-01-07] MEDS ORDERED: Propofol 10 mg/ml 1,000 MG/100 ML VIAL ONE (13:20)
[2019-01-07] MEDS ORDERED: Remifentanil 1 mg/3 ml Vial IV ONE (13:58)
[2019-01-07] MEDS ORDERED: DiphenhydrAMINE 50 mg/ml Inj ONE (14:02)
[2019-01-07] MEDS: HYDROmorphone 0.5 mg/0.5 ml ISec IVP PRN ×3 (15:49→16:29)
[2019-01-07] MEDS: Oxycodone/Acetaminophen 5/325 mg Tab PO PRN ×2 (18:17→22:25)
[2019-01-08] MEDS: Oxycodone/Acetaminophen 5/325 mg Tab PO PRN ×5 (03:44→21:49)
[2019-01-08 06:51] LABS: BASO % 0.6 % (0.0-2.0); EOS # 0.2 K/uL (0.0-0.7); EOS % 2.4 % (0.0-4.0); HEMOGLOBIN 10.3 g/dL (11.0-16.0); LYMPH # 1.4 K/uL (1.0-4.3); LYMPH % 17.5 % (20.0-40.0); MEAN CELL VOLUME 91.4 fL (81.0-99.0); MEAN CORPUSCULAR HEMOGLOBIN 31.4 pg (27.0-31.0); MEAN CORPUSCULAR HGB CONC 34.4 g/dL (33.0-37.0); MEAN PLATELET VOLUME 8.3 fL (7.2-11.7); MONO # 0.7 K/uL (0.0-0.8); MONO % 9.3 % (0.0-10.0); NEUT # 5.6 K/uL (1.8-7.0); NEUT % 70.2 % (50.0-75.0); NRBC % 0.1 % (0.0-2.0); RBC 3.29 Mil/uL (3.80-5.20); RED CELL DISTRIBUTION WIDTH 15.1 % (11.5-14.5)
[2019-01-08 07:33] LABS: ALB/GLOB RATIO 1.3 (1.0-2.1); ALBUMIN 3.5 g/dL (3.5-5.0); ALT/SGPT 36 U/L (9-52); AST/SGOT 55 U/L (14-36); BLOOD UREA NITROGEN 8 mg/dL (7-17); CALCIUM 8.9 mg/dl (8.6-10.4); GFR NON-AFRICAN AMERICAN > 60
--- NOTE | 2019-01-08 08:23 | OP ---
PROCEDURE DATE: 01/07/2019 PREOPERATIVE DIAGNOSIS: Large herniated disk, C5-C6. POSTOPERATIVE DIAGNOSIS: Large herniated disk, C5-C6. OPERATIONS: 1. Anterior cervical diskectomy, C5-C6. 2. Anterior cervical fusion, C5-C6. 3. Use of intervertebral device. 4. Use of spinal instrumentation. 5. Use of autograft by means of bone marrow aspiration. SURGEON: Андрей Malave MD CO-SURGEON: Neil Staton MD ANESTHESIA: General endotracheal tube intubation. DESCRIPTION OF PROCEDURE: The patient was brought to the operating room and placed on the operating room table in the supine position. General anesthesia was achieved. The patient was intubated. No excessive extension of the neck was done. Intravenous antibiotics were administered, and spinal cord monitoring leads were placed throughout the patient's body. Real-time monitoring was done by a molding technician in the room, and remote monitoring was done by a physician as well. Sequential compression boots were placed at each of the patient's legs. A small roll was placed beneath the patient's scapula to obtain gentle extension of the neck. The patient's arms were well padded and secured at her side and shoulders taped down. Baseline monitoring after the positioning was done, and no abnormalities were noted. As the patient has a history of seizure disorder, no motor stimulation was done during the case. The patient's neck was sterilely prepped and draped. Lidocaine 1% with epinephrine was used to infiltrate the site of the incision, and the incision was then made sharply from the midline to the left lung lying in its line. This was taken out in subcutaneous tissue using sharp and blunt dissection. Hemostasis was achieved using electrocautery. The platysma was divided in a vertical fashion and mobilized in all directions, and a plane bluntly developed in the anterior cervical vertebral bodies. The carotids were identified and gently retracted laterally, and the midline structures were taken medially. Prevertebral fascia was removed using peanut sponge, and needle placement was felt to be at the C5-C6 disk. This was confirmed under fluoroscopy. As the needle was removed, the annulus was marked. The longus colli muscles were cauterized and stripped back with a small T-elevator. Self-retaining Trimline retractors were placed in the wound with excellent visualization of the operative field. Another fluoroscopic view was taken with the needle in the disk, and again it was verified that we were at the C5-C6 level. The needle was removed and the endotracheal cuff deflated and reinflated minimally to help avoid compression injury to surrounding structures. The annulus was sharply incised and disk material was removed with pituitary rongeur and a small curved curette. A small lamina executive casino host was placed behind the disk space, and more disk material was removed toward the posterior margin of the disk, at which time the operating microscope was brought onto the field. The rest of decompression was done under microscopic visualization. The remaining disk and annual tissue were removed along the posterior longitudinal ligament. Several large free fragments of disk were removed with the pituitary rongeur. After the ventral surface, the dura was completely decompressed where the herniated disk had been pressing upon the cord. Foraminotomies were carried out until we could easily pass a blunt-tip nerve hook at each side as well as beneath the vertebral bodies above and below. The disk space was copiously irrigated with antibiotic solution. Hemostasis was achieved with thrombinated Gelfoam powder. We then proceeded with the fusion part of the procedure. A pin hole was made in the C6 vertebral body, and bone marrow was aspirated and used to soak a cube of Franklin sponge. Thrombinated Gelfoam powder was used for hemostasis at the donor site. Trials were done and size-5 BENGAL cage was found to be the best fit. The appropriate rasp was used while the marrow-soaked sponge was packed into the canal of the cage coated with Optium gel. The cage was then tamped into place and countersunk. A 13-mm Acumed Uniplate was then fixed into vertebral bodies using 12-mm self-drilling screws. Final AP and lateral fluoroscopic views showed excellent position of the hardware and intervertebral device. The screws were locked into place, and the wound was copiously irrigated with antibiotic solution. Hemostasis was achieved with bipolar cautery as well as thrombinated Gelfoam powder. The wound was closed in layers with interrupted sutures of 3-0 Vicryl for the platysma and subcutaneous tissue and a running subcuticular suture of 4-0 Monocryl for the skin. Steri-Strips and sterile dressing were applied along with a soft cervical collar. The patient was then awakened and extubated. She was transferred to a stretcher and taken to recovery room in stable condition. She tolerated the procedure well. She was actively moving all extremities at the time of her transfer, and no permanent electrophysiologic abnormalities were noted at the completion of the case. Estimated blood loss was 30 mL. She received 700 mL of crystalloids during the procedure. Андрей Malave MD
--- NOTE | 2019-01-08 08:25 | OP ---
PROCEDURE DATE: 01/07/2019 PREOPERATIVE DIAGNOSIS: Herniated cervical disk with myelopathy. POSTOPERATIVE DIAGNOSIS: Herniated cervical disk with myelopathy. PROCEDURE: Anterior cervical diskectomy, fixation and fusion at C5-C6. SURGEON: Neil Staton MD CO-SURGEON: Андрей Malave MD ANESTHESIA: General endotracheal. ESTIMATED BLOOD LOSS: 30 mL. COMPLICATIONS: None. 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 MR documented an acute disk herniation with significant cord impact. She had signs of myelopathy. She was suggested to undergo operative decompression, fixation and fusion by anterior diskectomy and fusion. The nature of this procedure, the rational behind it, alternatives with potential risks and complications were discussed with her at length. All of her questions were answered. She fully understood all the above and elected to proceed as offered. DESCRIPTION OF PROCEDURE: The patient was taken to the operating room. She was hooked up to neurophysiological monitoring. We could not use motor evoked potential because of the seizure disorder. She was intubated, anesthetized, and placed on OR table in the supine position. A small roll was placed between the scapula and head was placed in a donut. Shoulder was gently taped down. The entire left side of her throat was scrubbed with acetone and scrubbed, painted and draped in the usual sterile manner. The incision was localized with lateral fluoroscopy and made approximately 3 to 4 cm in length just to left of midline. The platysma was exposed open in the direction of its fibers. Dissection was then carried out in plane between the sternocleidomastoid and carotid laterally, the trachea and esophagus medially to expose the spine. This was cleared with Kittner elevators. A needle was placed in the exposed disk spaces, which we confirmed fluoroscopically to be the correct C5-C6 level. At this point, the longus colli muscle was stripped laterally and bilaterally. A self-retaining Polo type retractor was placed. There was no need for vertical retractor. The anesthesiologist then deflated the ET cuff. At this point, we incised and grossly emptied the disk material with the use of pituitary rongeurs and various curettes. This was done with the assistance of an intervertebral retractor. At this point, the microscope was brought in. We began somewhat through the right of midline, somewhat normal area and we were able to use a 1-mm Kerrison behind, the posterior longitudinal ligament thereby and delineated anterior drawer. This was then decompressed with the use of 1 and 2-mm Kerrisons. At this point, we came across from the right side to the more pathological left side. We then encountered a very significant series of free fragments that were clearly denuded through posterior longitudinally where markedly intact. These were teased down with the use of the pituitary rongeur and a 1-mm Kerrison. Both Kerrisons were then further used to remove all material off the anterior dura, which included the posterior longitudinal ligament and annulus. Little bit inside above and below were removed with the Kerrison as well. Foraminotomy was performed bilaterally with the use of the Kerrison. A [employer] instrument was used to inspect these foramina, which we then confirmed fluoroscopically to be completely patent. At this point, we measured the depth of disk space. We copiously irrigated the disk space with the antibiotic solution and then assured hemostasis with thrombinated powder Gelfoam. At this point, we performed bone graft harvestation. A small opening was made in the anterior C6 vertebral cortex. We then used an 18-gauge needle and a syringe to aspirate the bone marrow. This was then impregnated on a bone matrix sponge to use it for fusion. We trialed several implants including large sized, medium and small sized DePuy carbon fiber fusion cages. We chose a small 5-mm implant. The rasp instrument was then used to decorticate the endplate above and below, after which under fluoroscopic vision, we taped the 5-mm fusion cage and filled with the marrow-impregnated sponge until it was well seated and countersunk. This was confirmed both visually and fluoroscopically. Lastly, we placed the appropriate size DePuy titanium locking plate. The 12-mm screws were sequentially placed through the plate into C5 and C6. Final x-ray confirmed excellent position of the entire construct. The 2-screw head locking mechanisms were then tightened. The retractors were withdrawn. The wound was copiously irrigated with antibiotic solutions. Small bleeding points particularly along the longus colli muscles were coagulated with bipolar cautery. We observed the cavity for several minutes to ensure that hemostasis was complete. We then placed a layer of thrombinated powder Gelfoam in the prevertebral space. The platysma was reapproximated using interrupted Vicryl. The subcu was closed with interrupted and inverted 3-0 Vicryl. The skin was closed with a running 4-0 Monocryl stitch, benzoin and Steri-Strips. Dressing and a small soft collar were applied. The patient was easily aroused from anesthesia and extubated and noted to be moving all four lower extremities with good strength on the way to the recovery room. Neurophysiological monitoring including SSEPs and EMGs were back at baseline at the conclusion of the case. Counts were correct. There were no complications. Neil Staton MD
[2019-01-08] MEDS: Sodium Chloride 0.9% 1,000 ML IV SCH ×3 (08:30→21:50)
--- NOTE | 2019-01-08 08:46 | RAD ---
PROCEDURE: HISTORY: As above COMPARISON: None TECHNIQUE: Total fluoroscopic time utilized during the procedure: 25.2 seconds ; 2.65 mGy FINDINGS: Submitted images from the current procedure: 5 Please refer to the physician's notes performing the procedure. IMPRESSION: Less than 1 hour fluoroscopic time utilized during performance of the procedure
[2019-01-08] MEDS: Pantoprazole 40 mg EC Tab PO SCH (09:19)
--- NOTE | 2019-01-08 10:47 | CP.PCM.PN ---
Subjective - Date & Time of Evaluation Date of Evaluation: 01/08/19 Time of Evaluation: 10:46 - Subjective Subjective: PGY2 Progress Note for Dr. Cal Mcgrath. Patient seen and examined at bedside. Patient still reporting back pain on today's examination. Patient expected to go to the O.R. today for disectomy. Objective - Vital Signs/Intake and Output Vital Signs (last 24 hours): Temp Pulse Resp BP Pulse Ox 98.0 F 77 20 125/71 99 01/08/19 04:00 01/08/19 04:00 01/08/19 04:00 01/08/19 04:00 01/08/19 04:00 Intake and Output: 01/08/19 01/08/19 06:59 18:59 Intake Total 850 920 Balance 850 920 - Medications Medications: Current Medications Acetaminophen (Tylenol 325mg Tab) 650 mg PO Q6 PRN PRN Reason: Pain, Mild (1-3) Sodium Chloride (Sodium Chloride 0.9%) 1,000 mls @ 100 mls/hr IV .Q10H [facility] Last Admin: 01/08/19 08:30 Dose: 100 mls/hr Lamotrigine (Lamictal) 100 mg PO BID [facility] Last Admin: 01/08/19 09:19 Dose: 100 mg Oxycodone/Acetaminophen (Percocet 5/325 Mg Tab) 2 tab PO Q4H PRN PRN Reason: Pain, moderate (4-7) Stop: 01/10/19 15:24 Last Admin: 01/08/19 08:28 Dose: 2 tab Pantoprazole Sodium (Protonix Ec Tab) 40 mg PO DAILY [facility] Last Admin: 01/08/19 09:19 Dose: 40 mg - Labs Labs: 01/08/19 06:46 01/08/19 06:46 PT 11.3 SECONDS (9.7-12.2) 01/06/19 10:47 INR 1.0 01/06/19 10:47 APTT 37.1 SECONDS (21-34) H 01/06/19 10:47 - Head Exam Head Exam: ATRAUMATIC, NORMAL INSPECTION - Eye Exam Eye Exam: EOMI, Normal appearance, PERRL. absent: Periorbital tenderness Pupil Exam: NORMAL ACCOMODATION, PERRL. absent: Irregular, Unequal - ENT Exam ENT Exam: Mucous Membranes Moist, Normal Oropharynx - Neck Exam Neck Exam: Normal Inspection - Respiratory Exam Respiratory Exam: Clear to Ausculation Bilateral, NORMAL BREATHING PATTERN. absent: Prolonged Expiratory Phase, Respiratory Distress - Cardiovascular Exam Cardiovascular Exam: REGULAR RHYTHM, +S1, +S2 - GI/Abdominal Exam GI & Abdominal Exam: Soft, Normal Bowel Sounds. absent: Rigid, Hyperactive Bowel Sounds - Extremities Exam Extremities Exam: Full ROM, Normal Inspection. absent: Joint Swelling, Pedal Edema - Back Exam Back Exam: NORMAL INSPECTION. absent: CVA tenderness (R), paraspinal tenderness - Neurological Exam Neurological Exam: Alert, Awake, CN II-XII Intact, Oriented x3 - Psychiatric Exam Psychiatric exam: Normal Affect, Normal Mood. absent: Depressed - Skin Skin Exam: Dry, Intact, Normal Color Assessment and Plan - Assessment and Plan (Free Text) Plan: Plan: 58 year old female with a past medical history of seizures, herniated discs and back pain admitted for intractable pain. Plan: 1.Intractable pain Hx of herniated dics and chronic back pain. Flexeril and Morphine given in the E.D. S/P Discectomy POD #[address] Spangler consulted--> Help appreciated Cervical spine MRI:Moderate size left paracentral disc herniation at C5-6 with minimal cord flattening. There is also left-sided foraminal stenosis Thoracic spine MRI:Moderate size left paracentral disc herniation at C5-6 with minimal cord flattening. There is also left-sided foraminal stenosis Lumbar spine MRI: Mild disc degeneration at L5-S1. No evidence of disc herniation or spinal stenosis Neurosurgery Dr. Staton consulted--> Help appreciated. :arge cevical HNP w cord compression signs of myelopathy rec discectomy /fusion D/W Pt , agreeable Cardiology Dr. Watson consulted for surgery clearance :Patient medically cleared for O.R. Medications: Morphine 4mg IVP Q6 PRN Flexeril 5mg PO TID 2.hx of Seizures Head ct: no active disease -Continue Lamotrigine 100mg PO BID ppx Protonix Lovenox Dispo: POD #1. Likely to be discharged to rehab tomorrow ([facility]). Plan discussed with Attending Dr. Cal De La Cruz, PGY-2
--- NOTE | 2019-01-08 13:01 | CP.PCM.PN ---
Subjective - Date & Time of Evaluation Date of Evaluation: 01/08/19 Time of Evaluation: 13:00 - Subjective Subjective: POD 1 doing well feels better ambulating 5/5 throughout cleaerd for DC from my perspective will see in off next week Objective - Vital Signs/Intake and Output Vital Signs (last 24 hours): Temp Pulse Resp BP Pulse Ox 98.1 F 66 22 112/56 L 99 01/08/19 11:57 01/08/19 12:29 01/08/19 11:57 01/08/19 11:57 01/08/19 04:00 Intake and Output: 01/08/19 01/08/19 06:59 18:59 Intake Total 850 920 Balance 850 920 - Medications Medications: Current Medications Acetaminophen (Tylenol 325mg Tab) 650 mg PO Q6 PRN PRN Reason: Pain, Mild (1-3) Lamotrigine (Lamictal) 100 mg PO BID [facility] Last Admin: 01/08/19 09:19 Dose: 100 mg Oxycodone/Acetaminophen (Percocet 5/325 Mg Tab) 2 tab PO Q4H PRN PRN Reason: Pain, moderate (4-7) Stop: 01/10/19 15:24 Last Admin: 01/08/19 08:28 Dose: 2 tab Pantoprazole Sodium (Protonix Ec Tab) 40 mg PO DAILY [facility] Last Admin: 01/08/19 09:19 Dose: 40 mg - Labs Labs: 01/08/19 06:46 01/08/19 06:46 PT 11.3 SECONDS (9.7-12.2) 01/06/19 10:47 INR 1.0 01/06/19 10:47 APTT 37.1 SECONDS (21-34) H 01/06/19 10:47
--- NOTE | 2019-01-08 16:49 | CP.PCM.PN ---
Subjective - Date & Time of Evaluation Date of Evaluation: 01/08/19 - Subjective Subjective: patient examined today no nausea no vomiting no dizziness no diarrhea no fever no shortness of breath Objective - Vital Signs/Intake and Output Vital Signs (last 24 hours): Temp Pulse Resp BP Pulse Ox 98.7 F 69 20 137/75 100 01/08/19 15:43 01/08/19 15:43 01/08/19 15:43 01/08/19 15:43 01/08/19 15:43 Intake and Output: 01/08/19 01/08/19 06:59 18:59 Intake Total 850 2020 Output Total 850 Balance 850 1170 - Medications Medications: Current Medications Acetaminophen (Tylenol 325mg Tab) 650 mg PO Q6 PRN PRN Reason: Pain, Mild (1-3) Lamotrigine (Lamictal) 100 mg PO BID [facility] Last Admin: 01/08/19 09:19 Dose: 100 mg Oxycodone/Acetaminophen (Percocet 5/325 Mg Tab) 2 tab PO Q4H PRN PRN Reason: Pain, moderate (4-7) Stop: 01/10/19 15:24 Last Admin: 01/08/19 13:12 Dose: 2 tab Pantoprazole Sodium (Protonix Ec Tab) 40 mg PO DAILY [facility] Last Admin: 01/08/19 09:19 Dose: 40 mg - Labs Labs: 01/08/19 06:46 01/08/19 06:46 PT 11.3 SECONDS (9.7-12.2) 01/06/19 10:47 INR 1.0 01/06/19 10:47 APTT 37.1 SECONDS (21-34) H 01/06/19 10:47 - Constitutional Appears: Well - Head Exam Head Exam: ATRAUMATIC, NORMAL INSPECTION, NORMOCEPHALIC - Eye Exam Eye Exam: EOMI, Normal appearance, PERRL Pupil Exam: NORMAL ACCOMODATION, PERRL - ENT Exam ENT Exam: Mucous Membranes Moist, Normal Exam - Neck Exam Neck Exam: Full ROM, Normal Inspection. absent: Lymphadenopathy - Respiratory Exam Respiratory Exam: Decreased Breath Sounds - Cardiovascular Exam Cardiovascular Exam: REGULAR RHYTHM, +S1, +S2 - GI/Abdominal Exam GI & Abdominal Exam: Soft, Diminished Bowel Sounds - Rectal Exam Rectal Exam: Deferred - Neurological Exam Neurological Exam: Oriented x3 Assessment and Plan (1) Herniated disc Status: Acute (2) Intractable back pain Status: Acute (3) Intractable pain Status: Acute (4) Low back pain Status: Acute (5) Muscle spasm Status: Acute (6) Neck pain Status: Acute (7) Seizure Status: Chronic (8) Anxiety and depression Status: Acute (9) Dyspnea on effort Status: Acute (10) Seizure Status: Acute - Assessment and Plan (Free Text) Plan: plan discussed with patient moderate complexity of care lamictal percocet protonix ec tab tylenol medications reviewed labs reviewed vitals reviewed
--- NOTE | 2019-01-08 17:14 | CP.PCM.PCO ---
Physician Communication Note - Physician Communication Note Physician Communication Note: neuro d/c recs
--- NOTE | 2019-01-08 21:16 | CARD ---
APPROVED REPORT Date of service: 01/04/2019 EKG Measurement Heart [id number] <Conclusion> Normal sinus rhythm Normal ECG
[2019-01-09 07:24] LABS: BASO # 0.1 K/uL (0.0-0.2); BASO % 0.9 % (0.0-2.0); EOS # 0.3 K/uL (0.0-0.7); EOS % 4.4 % (0.0-4.0); HEMOGLOBIN 10.5 g/dL (11.0-16.0); LYMPH # 1.5 K/uL (1.0-4.3); LYMPH % 22.9 % (20.0-40.0); MEAN CELL VOLUME 92.7 fL (81.0-99.0); MEAN CORPUSCULAR HEMOGLOBIN 31.6 pg (27.0-31.0); MEAN CORPUSCULAR HGB CONC 34.1 g/dL (33.0-37.0); MEAN PLATELET VOLUME 8.4 fL (7.2-11.7); MONO # 0.5 K/uL (0.0-0.8); MONO % 8.3 % (0.0-10.0); NEUT # 4.2 K/uL (1.8-7.0); NEUT % 63.5 % (50.0-75.0); NRBC % 0.1 % (0.0-2.0); RBC 3.32 Mil/uL (3.80-5.20); RED CELL DISTRIBUTION WIDTH 14.9 % (11.5-14.5); WHITE BLOOD COUNT 6.6 K/uL (4.8-10.8)
[2019-01-09 07:32] LABS: ALB/GLOB RATIO 1.4 (1.0-2.1); ALBUMIN 3.8 g/dL (3.5-5.0); ALT/SGPT 35 U/L (9-52); AST/SGOT 48 U/L (14-36); BLOOD UREA NITROGEN 6 mg/dL (7-17); CALCIUM 8.8 mg/dl (8.6-10.4); GFR NON-AFRICAN AMERICAN > 60
--- NOTE | 2019-01-09 07:37 | CP.PCM.PN ---
Subjective - Date & Time of Evaluation Date of Evaluation: 01/09/19 Time of Evaluation: 08:00 - Subjective Subjective: Medicine Progress Note for Dr. Michel Mcgrath: Patient was seen and examined at bedside in the AM. Patient states she feels slightly nauseated after the pain medication. She states her pain comes and goes. Patient denies chest pain, shortness of breath, fever, chills, diarrhea or constipation. Objective - Vital Signs/Intake and Output Vital Signs (last 24 hours): Temp Pulse Resp BP Pulse Ox 98.1 F 66 20 106/64 97 01/09/19 04:05 01/09/19 04:05 01/09/19 04:05 01/09/19 04:05 01/09/19 04:05 - Medications Medications: Current Medications Acetaminophen (Tylenol 325mg Tab) 650 mg PO Q6 PRN PRN Reason: Pain, Mild (1-3) Lamotrigine (Lamictal) 100 mg PO BID [facility] Last Admin: 01/08/19 17:30 Dose: 100 mg Oxycodone/Acetaminophen (Percocet 5/325 Mg Tab) 2 tab PO Q4H PRN PRN Reason: Pain, moderate (4-7) Stop: 01/10/19 15:24 Last Admin: 01/08/19 21:49 Dose: 2 tab Pantoprazole Sodium (Protonix Ec Tab) 40 mg PO DAILY [facility] Last Admin: 01/08/19 09:19 Dose: 40 mg - Labs Labs: 01/09/19 07:03 01/09/19 07:03 PT 11.3 SECONDS (9.7-12.2) 01/06/19 10:47 INR 1.0 01/06/19 10:47 APTT 37.1 SECONDS (21-34) H 01/06/19 10:47 - Constitutional Appears: No Acute Distress - Head Exam Head Exam: ATRAUMATIC, NORMAL INSPECTION - Eye Exam Eye Exam: EOMI, Normal appearance Additional comments: Neck Brace in place - ENT Exam ENT Exam: Mucous Membranes Moist - Respiratory Exam Respiratory Exam: Clear to Ausculation Bilateral, NORMAL BREATHING PATTERN - Cardiovascular Exam Cardiovascular Exam: REGULAR RHYTHM, +S1, +S2 - GI/Abdominal Exam GI & Abdominal Exam: Soft, Normal Bowel Sounds. absent: Tenderness - Extremities Exam Extremities Exam: Normal Inspection - Neurological Exam Neurological Exam: Alert, Awake, Oriented x3 - Psychiatric Exam Psychiatric exam: Normal Affect - Skin Skin Exam: Normal Color Assessment and Plan - Assessment and Plan (Free Text) Assessment: 58 year old female with a past medical history of seizures, herniated discs and back pain admitted for intractable pain. Plan: Intractable Neck pain secondary to disc herniation C5-C6 with cord compression - Neuro/Surg Consult: Dr. Staton --> hep appreciated * S/P Discectomy/fusion POD #3 - Images: * Cervical spine MRI:Moderate size left paracentral disc herniation at C5-6 with minimal cord flattening. There is also left-sided foraminal stenosis * Thoracic spine MRI:Moderate size left paracentral disc herniation at C5-6 with minimal cord flattening. There is also left-sided foraminal stenosis * Lumbar spine MRI: Mild disc degeneration at L5-S1. No evidence of disc herniation or spinal stenosis - Cardiology Dr. Watson consulted for surgery clearance * Patient medically cleared for O.R. - Medications: * Morphine 4mg IVP Q6 PRN * Zofran prn for nausea * Flexeril 5mg PO TID History of Seizures - Neurology Dr. Spangler consulted--> Help appreciated - Head CT: No acute intracranial pathology identified. - Continue Lamotrigine 100mg PO BID Prophylaxis - Protonix 40mg daily - Lovenox 40mg SC daily Disposition: POD #3. Pending insurance approval for discharge to rehab ([facility]). Management per Dr. Cal Cuellar PGY-2
[2019-01-09] MEDS: Pantoprazole 40 mg EC Tab PO SCH (09:20)
[2019-01-09] MEDS: Oxycodone/Acetaminophen 5/325 mg Tab PO PRN ×2 (11:28→21:23)
[2019-01-09] MEDS ORDERED: DiphenhydrAMINE 50 mg/ml Inj IVP ONE (15:00)
--- NOTE | 2019-01-09 15:08 | CP.PCM.PN ---
Subjective - Date & Time of Evaluation Date of Evaluation: 01/09/19 Time of Evaluation: 15:05 - Subjective Subjective: Neuro Follow-Up Note: Mrs. Antoine was evaluated this afternoon. Sister present at bedside. Pt is doing generally well. She is POD#2 of an anterior cervical dissection and fusion of C5-C6. She is c/o itchiness to the surgical site. Denies extremity weakness and/or paresthesias. Otherwise, ROS is unremarkable. Objective - Vital Signs/Intake and Output Vital Signs (last 24 hours): Temp Pulse Resp BP Pulse Ox 98.2 F 74 20 131/77 97 01/09/19 07:00 01/09/19 09:00 01/09/19 07:00 01/09/19 07:00 01/09/19 07:00 - Medications Medications: Current Medications Acetaminophen (Tylenol 325mg Tab) 650 mg PO Q6 PRN PRN Reason: Pain, Mild (1-3) Enoxaparin Sodium (Lovenox) 40 mg SC DAILY [facility] Lamotrigine (Lamictal) 100 mg PO BID [facility] Last Admin: 01/09/19 09:19 Dose: 100 mg Ondansetron HCl (Zofran Inj) 4 mg IVP Q6 PRN PRN Reason: Nausea/Vomiting Oxycodone/Acetaminophen (Percocet 5/325 Mg Tab) 2 tab PO Q4H PRN PRN Reason: Pain, moderate (4-7) Stop: 01/10/19 15:24 Last Admin: 01/09/19 11:28 Dose: 2 tab Pantoprazole Sodium (Protonix Ec Tab) 40 mg PO DAILY [facility] Last Admin: 01/09/19 09:20 Dose: 40 mg - Labs Labs: 01/09/19 07:03 01/09/19 07:03 PT 11.3 SECONDS (9.7-12.2) 01/06/19 10:47 INR 1.0 01/06/19 10:47 APTT 37.1 SECONDS (21-34) H 01/06/19 10:47 - Constitutional Appears: Well, Non-toxic, No Acute Distress - Head Exam Head Exam: ATRAUMATIC, NORMAL INSPECTION, NORMOCEPHALIC - Eye Exam Eye Exam: EOMI, Normal appearance, PERRL Pupil Exam: NORMAL ACCOMODATION, PERRL - ENT Exam ENT Exam: Mucous Membranes Moist - Neck Exam Additional comments: surgical site to anterior cervical area; soft c-collar maintained on. - Respiratory Exam Respiratory Exam: NORMAL BREATHING PATTERN - Extremities Exam Extremities Exam: Full ROM. absent: Calf Tenderness, Tenderness - Back Exam Back Exam: NORMAL INSPECTION - Neurological Exam Neurological Exam: Alert, Awake, CN II-XII Intact, Oriented x3, Reflexes Normal Neuro motor strength exam: Left Upper Extremity: 5 (distal 5/5), Right Upper Extremity: 5 (distal 5/5), Left Lower Extremity: 5 (distal 5/5), Right Lower Extremity: 5 (distal 5/5) Additional comments: No focal motor or sensory deficits. - Psychiatric Exam Psychiatric exam: Normal Affect, Normal Mood - Skin Skin Exam: Normal Color Assessment and Plan (1) Intractable back pain Assessment & Plan: -Follow up with neurosurgery as outpatient as directed by them. -Continue PT. Status: Acute (2) Seizure Assessment & Plan: -Continue Lamictal 100 mg PO BID upon d/c. -F/U with her primary neurologist, Dr. Mariano, as outpatient for further management. Connie Lamas DNP, BUSINESS EXECUTIVE d/w Dr. Moreno Pt is neurologically stable for d/c. Thank you for this consultation. Connie Lamas DNP, BUSINESS EXECUTIVE d/w Dr. Moreno Status: Chronic
[2019-01-09] MEDS: Enoxaparin 40 mg Syringe SC SCH (18:34)
--- NOTE | 2019-01-09 20:57 | CP.PCM.PN ---
Subjective - Date & Time of Evaluation Date of Evaluation: 01/09/19 - Subjective Subjective: patient examined today no nausea, no vomiting, no diarrhea, no dizziness, no fever, no shortness of breath Objective - Vital Signs/Intake and Output Vital Signs (last 24 hours): Temp Pulse Resp BP Pulse Ox 98.2 F 74 20 127/70 98 01/09/19 15:42 01/09/19 16:00 01/09/19 15:42 01/09/19 15:42 01/09/19 15:42 - Medications Medications: Current Medications Acetaminophen (Tylenol 325mg Tab) 650 mg PO Q6 PRN PRN Reason: Pain, Mild (1-3) Enoxaparin Sodium (Lovenox) 40 mg SC DAILY [facility] Last Admin: 01/09/19 18:34 Dose: 40 mg Lamotrigine (Lamictal) 100 mg PO BID [facility] Last Admin: 01/09/19 18:34 Dose: 100 mg Ondansetron HCl (Zofran Inj) 4 mg IVP Q6 PRN PRN Reason: Nausea/Vomiting Oxycodone/Acetaminophen (Percocet 5/325 Mg Tab) 2 tab PO Q4H PRN PRN Reason: Pain, moderate (4-7) Stop: 01/10/19 15:24 Last Admin: 01/09/19 11:28 Dose: 2 tab Pantoprazole Sodium (Protonix Ec Tab) 40 mg PO DAILY [facility] Last Admin: 01/09/19 09:20 Dose: 40 mg - Labs Labs: 01/09/19 07:03 01/09/19 07:03 PT 11.3 SECONDS (9.7-12.2) 01/06/19 10:47 INR 1.0 01/06/19 10:47 APTT 37.1 SECONDS (21-34) H 01/06/19 10:47 - Constitutional Appears: Well - Head Exam Head Exam: ATRAUMATIC, NORMAL INSPECTION, NORMOCEPHALIC - Eye Exam Eye Exam: EOMI, Normal appearance, PERRL Pupil Exam: NORMAL ACCOMODATION, PERRL - ENT Exam ENT Exam: Mucous Membranes Moist, Normal Exam - Neck Exam Neck Exam: Full ROM, Normal Inspection. absent: Lymphadenopathy - Respiratory Exam Respiratory Exam: Decreased Breath Sounds - Cardiovascular Exam Cardiovascular Exam: REGULAR RHYTHM, +S1, +S2 - GI/Abdominal Exam GI & Abdominal Exam: Soft, Diminished Bowel Sounds - Rectal Exam Rectal Exam: Deferred - Neurological Exam Neurological Exam: Oriented x3 Assessment and Plan (1) Herniated disc Status: Acute (2) Intractable back pain Status: Acute (3) Intractable pain Status: Acute (4) Low back pain Status: Acute (5) Muscle spasm Status: Acute (6) Neck pain Status: Acute (7) Seizure Status: Chronic (8) Anxiety and depression Status: Acute (9) Dyspnea on effort Status: Acute (10) Seizure Status: Acute - Assessment and Plan (Free Text) Plan: plan discussed with patient moderate complexity of care lamictal lovenox percocet ptotonix ec tab tylenol zofran inj medications reviewed vitals reviewed labs reviewed
[2019-01-10] MEDS: Oxycodone/Acetaminophen 5/325 mg Tab PO PRN (06:23)
[2019-01-10 06:40] LABS: BASO # 0.1 K/uL (0.0-0.2); BASO % 0.9 % (0.0-2.0); EOS # 0.3 K/uL (0.0-0.7); EOS % 4.4 % (0.0-4.0); LYMPH # 1.8 K/uL (1.0-4.3); LYMPH % 26.7 % (20.0-40.0); MEAN CELL VOLUME 93.4 fL (81.0-99.0); MEAN CORPUSCULAR HEMOGLOBIN 30.7 pg (27.0-31.0); MEAN CORPUSCULAR HGB CONC 32.9 g/dL (33.0-37.0); MEAN PLATELET VOLUME 8.1 fL (7.2-11.7); MONO # 0.6 K/uL (0.0-0.8); MONO % 8.7 % (0.0-10.0); NEUT % 59.3 % (50.0-75.0); RBC 3.56 Mil/uL (3.80-5.20); RED CELL DISTRIBUTION WIDTH 14.6 % (11.5-14.5); WHITE BLOOD COUNT 6.7 K/uL (4.8-10.8)
[2019-01-10 07:02] LABS: ALB/GLOB RATIO 1.4 (1.0-2.1); ALBUMIN 3.9 g/dL (3.5-5.0); ALT/SGPT 30 U/L (9-52); AST/SGOT 37 U/L (14-36); BLOOD UREA NITROGEN 10 mg/dL (7-17); GFR NON-AFRICAN AMERICAN > 60
--- NOTE | 2019-01-10 07:20 | CP.PCM.PN ---
Subjective - Date & Time of Evaluation Date of Evaluation: 01/10/19 Time of Evaluation: 08:00 - Subjective Subjective: Medicine Progress Note for Dr. Michel Mcgrath: Patient was seen and examined at bedside in the AM. She states her pain comes and goes. Patient denies chest pain, shortness of breath, fever, chills, diarrhea or constipation. Objective - Vital Signs/Intake and Output Vital Signs (last 24 hours): Temp Pulse Resp BP Pulse Ox 98.3 F 67 20 126/69 98 01/09/19 23:00 01/10/19 01:48 01/09/19 23:00 01/09/19 23:00 01/09/19 23:00 - Medications Medications: Current Medications Acetaminophen (Tylenol 325mg Tab) 650 mg PO Q6 PRN PRN Reason: Pain, Mild (1-3) Enoxaparin Sodium (Lovenox) 40 mg SC DAILY [facility] Last Admin: 01/09/19 18:34 Dose: 40 mg Lamotrigine (Lamictal) 100 mg PO BID [facility] Last Admin: 01/09/19 18:34 Dose: 100 mg Ondansetron HCl (Zofran Inj) 4 mg IVP Q6 PRN PRN Reason: Nausea/Vomiting Oxycodone/Acetaminophen (Percocet 5/325 Mg Tab) 2 tab PO Q4H PRN PRN Reason: Pain, moderate (4-7) Stop: 01/10/19 15:24 Last Admin: 01/10/19 06:23 Dose: 2 tab Pantoprazole Sodium (Protonix Ec Tab) 40 mg PO DAILY [facility] Last Admin: 01/09/19 09:20 Dose: 40 mg - Labs Labs: 01/10/19 06:31 01/10/19 06:31 PT 11.3 SECONDS (9.7-12.2) 01/06/19 10:47 INR 1.0 01/06/19 10:47 APTT 37.1 SECONDS (21-34) H 01/06/19 10:47 - Constitutional Appears: No Acute Distress - Head Exam Head Exam: ATRAUMATIC, NORMAL INSPECTION - Eye Exam Eye Exam: EOMI, Normal appearance Additional comments: Neck Brace in place - ENT Exam ENT Exam: Mucous Membranes Moist - Respiratory Exam Respiratory Exam: Clear to Ausculation Bilateral, NORMAL BREATHING PATTERN - Cardiovascular Exam Cardiovascular Exam: REGULAR RHYTHM, +S1, +S2 - GI/Abdominal Exam GI & Abdominal Exam: Soft, Normal Bowel Sounds. absent: Tenderness - Extremities Exam Extremities Exam: Normal Inspection - Neurological Exam Neurological Exam: Alert, Awake, Oriented x3 - Psychiatric Exam Psychiatric exam: Normal Affect Assessment and Plan - Assessment and Plan (Free Text) Assessment: 58 year old female with a past medical history of seizures, herniated discs and back pain admitted for intractable pain. Plan: Intractable Neck pain secondary to disc herniation C5-C6 with cord compression - Neuro/Surg Consult: Dr. Staton --> hep appreciated * S/P Discectomy/fusion POD #4 - Images: * Cervical spine MRI:Moderate size left paracentral disc herniation at C5-6 with minimal cord flattening. There is also left-sided foraminal stenosis * Thoracic spine MRI:Moderate size left paracentral disc herniation at C5-6 with minimal cord flattening. There is also left-sided foraminal stenosis * Lumbar spine MRI: Mild disc degeneration at L5-S1. No evidence of disc herniation or spinal stenosis - Cardiology Dr. Watson consulted for surgery clearance * Patient medically cleared for O.R. - Medications: * Morphine 4mg IVP Q6 PRN * Zofran prn for nausea * Flexeril 5mg PO TID History of Seizures - Neurology Dr. Spangler consulted--> Help appreciated - Head CT: No acute intracranial pathology identified. - Continue Lamotrigine 100mg PO BID Prophylaxis - Protonix 40mg daily - Lovenox 40mg SC daily Disposition: POD #4. Pending insurance approval for discharge to rehab ([facility]). Management per Dr. Cal Cuellar PGY-2
[2019-01-10] MEDS ORDERED: Oxycodone/Acetaminophen 5/325 mg Tab PO PRN ×2 (08:00→21:18)
[2019-01-10] MEDS: Enoxaparin 40 mg Syringe SC SCH (09:36)
[2019-01-10] MEDS: Pantoprazole 40 mg EC Tab PO SCH (09:36)
[2019-01-10] MEDS ORDERED: Enoxaparin 40 mg Syringe SC SCH (10:00)
--- NOTE | 2019-01-10 19:10 | CP.PCM.PN ---
Subjective - Date & Time of Evaluation Date of Evaluation: 01/10/19 - Subjective Subjective: patient seen today no nausea, no diarrhea, no fever, no vomiting, no diarrhea no shortness of breath Objective - Vital Signs/Intake and Output Vital Signs (last 24 hours): Temp Pulse Resp BP Pulse Ox 97.5 F L 66 20 121/70 99 01/10/19 15:00 01/10/19 18:14 01/10/19 15:00 01/10/19 15:00 01/10/19 15:00 - Medications Medications: Current Medications Acetaminophen (Tylenol 325mg Tab) 650 mg PO Q6 PRN PRN Reason: Pain, Mild (1-3) Enoxaparin Sodium (Lovenox) 40 mg SC DAILY [facility] Last Admin: 01/10/19 09:36 Dose: 40 mg Lamotrigine (Lamictal) 100 mg PO BID [facility] Last Admin: 01/10/19 17:49 Dose: 100 mg Ondansetron HCl (Zofran Inj) 4 mg IVP Q6 PRN PRN Reason: Nausea/Vomiting Pantoprazole Sodium (Protonix Ec Tab) 40 mg PO DAILY [facility] Last Admin: 01/10/19 09:36 Dose: 40 mg - Labs Labs: 01/10/19 06:31 01/10/19 06:31 PT 11.3 SECONDS (9.7-12.2) 01/06/19 10:47 INR 1.0 01/06/19 10:47 APTT 37.1 SECONDS (21-34) H 01/06/19 10:47 - Constitutional Appears: Well - Head Exam Head Exam: ATRAUMATIC, NORMAL INSPECTION, NORMOCEPHALIC - Eye Exam Eye Exam: EOMI, Normal appearance, PERRL Pupil Exam: NORMAL ACCOMODATION, PERRL - ENT Exam ENT Exam: Mucous Membranes Moist, Normal Exam - Neck Exam Neck Exam: Full ROM - Respiratory Exam Respiratory Exam: Decreased Breath Sounds - Cardiovascular Exam Cardiovascular Exam: REGULAR RHYTHM, +S1, +S2 - GI/Abdominal Exam GI & Abdominal Exam: Soft, Diminished Bowel Sounds - Rectal Exam Rectal Exam: Deferred - Neurological Exam Neurological Exam: Oriented x3 Assessment and Plan - Assessment and Plan (Free Text) Plan: plan discussed with patient moderate complexity of care lamictal lovenox percocet ptotonix ec tab tylenol zofran inj medications reviewed vitals reviewed labs reviewed
[2019-01-11 06:43] LABS: BASO % 0.9 % (0.0-2.0); EOS # 0.3 K/uL (0.0-0.7); EOS % 5.7 % (0.0-4.0); HEMOGLOBIN 11.6 g/dL (11.0-16.0); LYMPH # 1.8 K/uL (1.0-4.3); LYMPH % 32.7 % (20.0-40.0); MEAN CELL VOLUME 92.4 fL (81.0-99.0); MEAN CORPUSCULAR HEMOGLOBIN 31.1 pg (27.0-31.0); MEAN CORPUSCULAR HGB CONC 33.6 g/dL (33.0-37.0); MEAN PLATELET VOLUME 8.1 fL (7.2-11.7); MONO # 0.7 K/uL (0.0-0.8); MONO % 11.7 % (0.0-10.0); NEUT # 2.7 K/uL (1.8-7.0); RBC 3.72 Mil/uL (3.80-5.20); RED CELL DISTRIBUTION WIDTH 14.9 % (11.5-14.5); WHITE BLOOD COUNT 5.6 K/uL (4.8-10.8)
--- NOTE | 2019-01-11 07:36 | CP.PCM.PN ---
Subjective - Date & Time of Evaluation Date of Evaluation: 01/11/19 Time of Evaluation: 07:35 - Subjective Subjective: PGY2 Progress Note for Dr. Cal Mcgrath. Patient seen and examined at bedside. Patient reports an improvement in pain since yesterdays visit. Patient denies any chest pain, fevers, headaches, abdominal pain, or any other complaints. Objective - Vital Signs/Intake and Output Vital Signs (last 24 hours): Temp Pulse Resp BP Pulse Ox 98.4 F 67 20 112/60 95 01/11/19 00:00 01/11/19 00:13 01/11/19 00:00 01/11/19 00:00 01/11/19 00:00 - Medications Medications: Current Medications Acetaminophen (Tylenol 325mg Tab) 650 mg PO Q6 PRN PRN Reason: Pain, Mild (1-3) Last Admin: 01/10/19 21:07 Dose: 650 mg Enoxaparin Sodium (Lovenox) 40 mg SC DAILY [facility] Last Admin: 01/10/19 09:36 Dose: 40 mg Lamotrigine (Lamictal) 100 mg PO BID [facility] Last Admin: 01/10/19 17:49 Dose: 100 mg Ondansetron HCl (Zofran Inj) 4 mg IVP Q6 PRN PRN Reason: Nausea/Vomiting Oxycodone/Acetaminophen (Percocet 5/325 Mg Tab) 1 tab PO Q6H PRN PRN Reason: Pain, severe (8-10) Stop: 01/13/19 21:19 Last Admin: 01/10/19 21:51 Dose: 1 tab Pantoprazole Sodium (Protonix Ec Tab) 40 mg PO DAILY [facility] Last Admin: 01/10/19 09:36 Dose: 40 mg - Labs Labs: 01/11/19 06:38 01/10/19 06:31 PT 11.3 SECONDS (9.7-12.2) 01/06/19 10:47 INR 1.0 01/06/19 10:47 APTT 37.1 SECONDS (21-34) H 01/06/19 10:47 - Head Exam Head Exam: ATRAUMATIC, NORMAL INSPECTION - Eye Exam Eye Exam: EOMI, Normal appearance, PERRL Pupil Exam: NORMAL ACCOMODATION, PERRL - ENT Exam ENT Exam: Mucous Membranes Moist, Normal Oropharynx - Neck Exam Neck Exam: absent: Lymphadenopathy, Thyromegaly - Respiratory Exam Respiratory Exam: Clear to Ausculation Bilateral, NORMAL BREATHING PATTERN. absent: Prolonged Expiratory Phase, Respiratory Distress - Cardiovascular Exam Cardiovascular Exam: REGULAR RHYTHM, +S1, +S2 - GI/Abdominal Exam GI & Abdominal Exam: Soft, Normal Bowel Sounds. absent: Rigid, Hyperactive Bowel Sounds - Extremities Exam Extremities Exam: Full ROM, Normal Inspection. absent: Pedal Edema - Back Exam Back Exam: NORMAL INSPECTION. absent: CVA tenderness (R), paraspinal tenderness - Neurological Exam Neurological Exam: Alert, Awake, CN II-XII Intact, Oriented x3 - Psychiatric Exam Psychiatric exam: Normal Affect, Normal Mood. absent: Depressed - Skin Skin Exam: Dry, Intact, Normal Color Assessment and Plan - Assessment and Plan (Free Text) Plan: 58 year old female with a past medical history of seizures, herniated discs and back pain admitted for intractable pain. Plan: Intractable Neck pain secondary to disc herniation C5-C6 with cord compression - Neuro/Surg Consult: Dr. Staton --> hep appreciated S/P Discectomy/fusion POD #5 - Images: Cervical spine MRI:Moderate size left paracentral disc herniation at C5-6 with minimal cord flattening. There is also left-sided foraminal stenosis Thoracic spine MRI:Moderate size left paracentral disc herniation at C5-6 with minimal cord flattening. There is also left-sided foraminal stenosis Lumbar spine MRI: Mild disc degeneration at L5-S1. No evidence of disc herniation or spinal stenosis - Cardiology Dr. Watson consulted for surgery clearance Patient medically cleared for O.R. - Medications: Morphine 4mg IVP Q6 PRN Zofran prn for nausea Flexeril 5mg PO TID History of Seizures - Neurology Dr. Spangler consulted--> Help appreciated - Head CT: No acute intracranial pathology identified. - Continue Lamotrigine 100mg PO BID Prophylaxis - Protonix 40mg daily - Lovenox 40mg SC daily Disposition: POD #5. Reporting some dizziness upon ambulating . Will observe tonight. Likely able to discharge tomorrow. Management per Dr. Cal De La Cruz, PGY-2
[2019-01-11 09:04] LABS: ALB/GLOB RATIO 1.5 (1.0-2.1); ALBUMIN 4.1 g/dL (3.5-5.0); ALT/SGPT 30 U/L (9-52); AST/SGOT 35 U/L (14-36); BLOOD UREA NITROGEN 11 mg/dL (7-17); CALCIUM 9.3 mg/dl (8.6-10.4); GFR NON-AFRICAN AMERICAN > 60
[2019-01-11] MEDS: Enoxaparin 40 mg Syringe SC SCH (09:15)
[2019-01-11] MEDS: Pantoprazole 40 mg EC Tab PO SCH (09:15)
[2019-01-11] MEDS: Potassium Chloride 20 mEq ER Tab PO SCH (16:33)
--- NOTE | 2019-01-11 19:17 | CP.PCM.PN ---
Subjective - Date & Time of Evaluation Date of Evaluation: 01/11/19 - Subjective Subjective: patient examined today no nausea, no vomiting, no dizziness, no diarrhea, no fever no shortness of breath Objective - Vital Signs/Intake and Output Vital Signs (last 24 hours): Temp Pulse Resp BP Pulse Ox 98.2 F 69 20 107/68 98 01/11/19 15:36 01/11/19 16:00 01/11/19 15:36 01/11/19 15:36 01/11/19 15:36 - Medications Medications: Current Medications Acetaminophen (Tylenol 325mg Tab) 650 mg PO Q6 PRN PRN Reason: Pain, Mild (1-3) Last Admin: 01/10/19 21:07 Dose: 650 mg Enoxaparin Sodium (Lovenox) 40 mg SC DAILY [facility] Last Admin: 01/11/19 09:15 Dose: 40 mg Lamotrigine (Lamictal) 100 mg PO BID [facility] Last Admin: 01/11/19 17:09 Dose: 100 mg Ondansetron HCl (Zofran Inj) 4 mg IVP Q6 PRN PRN Reason: Nausea/Vomiting Last Admin: 01/11/19 09:18 Dose: 4 mg Oxycodone/Acetaminophen (Percocet 5/325 Mg Tab) 1 tab PO Q6H PRN PRN Reason: Pain, severe (8-10) Stop: 01/13/19 21:19 Last Admin: 01/10/19 21:51 Dose: 1 tab Pantoprazole Sodium (Protonix Ec Tab) 40 mg PO DAILY [facility] Last Admin: 01/11/19 09:15 Dose: 40 mg Potassium Chloride (K-Dur 20 Meq Er Tab) 40 meq PO BRK [facility] Last Admin: 01/11/19 16:33 Dose: 40 meq - Labs Labs: 01/11/19 06:38 01/11/19 06:38 PT 11.3 SECONDS (9.7-12.2) 01/06/19 10:47 INR 1.0 01/06/19 10:47 APTT 37.1 SECONDS (21-34) H 01/06/19 10:47 - Constitutional Appears: Well - Head Exam Head Exam: ATRAUMATIC, NORMAL INSPECTION, NORMOCEPHALIC - Eye Exam Eye Exam: EOMI, Normal appearance, PERRL Pupil Exam: NORMAL ACCOMODATION, PERRL - ENT Exam ENT Exam: Mucous Membranes Moist, Normal Exam - Neck Exam Neck Exam: Full ROM, Normal Inspection. absent: Lymphadenopathy - Respiratory Exam Respiratory Exam: Decreased Breath Sounds - Cardiovascular Exam Cardiovascular Exam: REGULAR RHYTHM, +S1, +S2 - GI/Abdominal Exam GI & Abdominal Exam: Soft, Diminished Bowel Sounds - Rectal Exam Rectal Exam: Deferred - Neurological Exam Neurological Exam: Oriented x3 Assessment and Plan - Assessment and Plan (Free Text) Plan: plan discussed with patient moderate complexity of care lamictal k-dur lovenox percocet ptotonix ec tab tylenol zofran inj medications reviewed vitals reviewed labs reviewed
[2019-01-12] MEDS: Potassium Chloride 20 mEq ER Tab PO SCH (09:17)
[2019-01-12] MEDS: Pantoprazole 40 mg EC Tab PO SCH (09:18)
[2019-01-12] MEDS: Enoxaparin 40 mg Syringe SC SCH (09:18)
--- NOTE | 2019-01-12 20:49 | CP.PCM.PN ---
Subjective - Date & Time of Evaluation Date of Evaluation: 01/12/19 Time of Evaluation: 09:25 - Subjective Subjective: no nausea no vomiting no diarrhea no dizziness no fever no shortness of breath Objective - Vital Signs/Intake and Output Vital Signs (last 24 hours): Temp Pulse Resp BP Pulse Ox 98 F 69 20 104/67 98 01/12/19 15:23 01/12/19 16:15 01/12/19 15:23 01/12/19 15:23 01/12/19 15:23 Intake and Output: 01/12/19 01/13/19 18:59 06:59 Intake Total 1979 Balance 1979 - Medications Medications: Current Medications Acetaminophen (Tylenol 325mg Tab) 650 mg PO Q6 PRN PRN Reason: Pain, Mild (1-3) Last Admin: 01/10/19 21:07 Dose: 650 mg Enoxaparin Sodium (Lovenox) 40 mg SC DAILY [facility] Last Admin: 01/12/19 09:18 Dose: 40 mg Lamotrigine (Lamictal) 100 mg PO BID [facility] Last Admin: 01/12/19 18:00 Dose: 100 mg Meclizine HCl (Antivert) 25 mg PO TID PRN PRN Reason: Dizziness Last Admin: 01/12/19 08:08 Dose: 25 mg Ondansetron HCl (Zofran Inj) 4 mg IVP Q6 PRN PRN Reason: Nausea/Vomiting Last Admin: 01/11/19 09:18 Dose: 4 mg Oxycodone/Acetaminophen (Percocet 5/325 Mg Tab) 1 tab PO Q6H PRN PRN Reason: Pain, severe (8-10) Stop: 01/13/19 21:19 Last Admin: 01/10/19 21:51 Dose: 1 tab Pantoprazole Sodium (Protonix Ec Tab) 40 mg PO DAILY [facility] Last Admin: 01/12/19 09:18 Dose: 40 mg Potassium Chloride (K-Dur 20 Meq Er Tab) 40 meq PO BRK [facility] Last Admin: 01/12/19 09:17 Dose: 40 meq - Labs Labs: 01/11/19 06:38 01/11/19 06:38 PT 11.3 SECONDS (9.7-12.2) 01/06/19 10:47 INR 1.0 01/06/19 10:47 APTT 37.1 SECONDS (21-34) H 01/06/19 10:47 - Constitutional Appears: Well - Head Exam Head Exam: ATRAUMATIC, NORMAL INSPECTION, NORMOCEPHALIC - Eye Exam Eye Exam: EOMI, Normal appearance, PERRL Pupil Exam: NORMAL ACCOMODATION, PERRL - ENT Exam ENT Exam: Mucous Membranes Moist, Normal Exam - Neck Exam Neck Exam: Full ROM, Normal Inspection. absent: Lymphadenopathy - Respiratory Exam Respiratory Exam: Decreased Breath Sounds - Cardiovascular Exam Cardiovascular Exam: REGULAR RHYTHM, +S1, +S2 - GI/Abdominal Exam GI & Abdominal Exam: Soft, Diminished Bowel Sounds - Rectal Exam Rectal Exam: Deferred - Neurological Exam Neurological Exam: Oriented x3 Assessment and Plan - Assessment and Plan (Free Text) Plan: plan discussed with patient moderate complexity of care medications reviewed vitals reviewed labs reviewed lamictal k-dur lovenox percocet ptotonix ec tab tylenol zofran inj
[2019-01-13] MEDS: Pantoprazole 40 mg EC Tab PO SCH (10:26)
[2019-01-13] MEDS: Enoxaparin 40 mg Syringe SC SCH (10:26)
[2019-01-13] MEDS: Potassium Chloride 20 mEq ER Tab PO SCH (10:26)
--- NOTE | 2019-01-13 17:05 | CP.PCM.PN ---
Subjective - Date & Time of Evaluation Date of Evaluation: 01/13/19 - Subjective Subjective: patient seen today no dizziness, no diarrhea, no fever, no nausea, no vomiting no shortness of breath Objective - Vital Signs/Intake and Output Vital Signs (last 24 hours): Temp Pulse Resp BP Pulse Ox 98.6 F 73 20 100/63 94 L 01/13/19 16:35 01/13/19 16:35 01/13/19 16:35 01/13/19 16:35 01/13/19 16:35 - Medications Medications: Current Medications Acetaminophen (Tylenol 325mg Tab) 650 mg PO Q6 PRN PRN Reason: Pain, Mild (1-3) Last Admin: 01/10/19 21:07 Dose: 650 mg Enoxaparin Sodium (Lovenox) 40 mg SC DAILY [facility] Last Admin: 01/13/19 10:26 Dose: 40 mg Lamotrigine (Lamictal) 100 mg PO BID [facility] Last Admin: 01/13/19 10:26 Dose: 100 mg Meclizine HCl (Antivert) 25 mg PO TID PRN PRN Reason: Dizziness Last Admin: 01/13/19 10:26 Dose: 25 mg Ondansetron HCl (Zofran Inj) 4 mg IVP Q6 PRN PRN Reason: Nausea/Vomiting Last Admin: 01/11/19 09:18 Dose: 4 mg Oxycodone/Acetaminophen (Percocet 5/325 Mg Tab) 1 tab PO Q6H PRN PRN Reason: Pain, severe (8-10) Stop: 01/13/19 21:19 Last Admin: 01/10/19 21:51 Dose: 1 tab Pantoprazole Sodium (Protonix Ec Tab) 40 mg PO DAILY [facility] Last Admin: 01/13/19 10:26 Dose: 40 mg Potassium Chloride (K-Dur 20 Meq Er Tab) 40 meq PO BRK [facility] Last Admin: 01/13/19 10:26 Dose: 40 meq - Labs Labs: 01/11/19 06:38 01/11/19 06:38 PT 11.3 SECONDS (9.7-12.2) 01/06/19 10:47 INR 1.0 01/06/19 10:47 APTT 37.1 SECONDS (21-34) H 01/06/19 10:47 - Constitutional Appears: Well - Head Exam Head Exam: ATRAUMATIC, NORMAL INSPECTION, NORMOCEPHALIC - Eye Exam Eye Exam: EOMI, Normal appearance, PERRL Pupil Exam: NORMAL ACCOMODATION, PERRL - ENT Exam ENT Exam: Mucous Membranes Moist, Normal Exam - Neck Exam Neck Exam: Full ROM, Normal Inspection. absent: Lymphadenopathy - Respiratory Exam Respiratory Exam: Decreased Breath Sounds - Cardiovascular Exam Cardiovascular Exam: REGULAR RHYTHM, +S1, +S2 - GI/Abdominal Exam GI & Abdominal Exam: Soft, Diminished Bowel Sounds - Rectal Exam Rectal Exam: Deferred - Neurological Exam Neurological Exam: Oriented x3 Assessment and Plan - Assessment and Plan (Free Text) Plan: lamictal k-dur lovenox percocet ptotonix ec tab tylenol zofran inj plan discussed with patient moderate complexity of care medications reviewed vitals reviewed labs reviewed
[2019-01-14] MEDS: Potassium Chloride 20 mEq ER Tab PO SCH (08:28)
[2019-01-14] MEDS: Enoxaparin 40 mg Syringe SC SCH (09:25)
[2019-01-14] MEDS: Pantoprazole 40 mg EC Tab PO SCH (09:25)
[2019-01-14] MEDS ORDERED: Diclofenac Sodium Delayed Release 50 mg EC Tab PO PRN (13:57)
[2019-01-14] MEDS: Oxycodone/Acetaminophen 5/325 mg Tab PO PRN (14:27)
--- NOTE | 2019-01-14 17:21 | CP.PCM.PN ---
Subjective - Date & Time of Evaluation Date of Evaluation: 01/14/19 Time of Evaluation: 10:50 - Subjective Subjective: patient seen today no nausea no vomiting no diarrhea no dizziness no fever no shortness of breath Objective - Vital Signs/Intake and Output Vital Signs (last 24 hours): Temp Pulse Resp BP Pulse Ox 98.1 F 68 20 108/70 100 01/14/19 15:12 01/14/19 15:12 01/14/19 15:12 01/14/19 15:12 01/14/19 15:12 Intake and Output: 01/14/19 01/14/19 06:59 18:59 Intake Total 350 Balance 350 - Medications Medications: Current Medications Acetaminophen (Tylenol 325mg Tab) 650 mg PO Q6 PRN PRN Reason: Pain, Mild (1-3) Last Admin: 01/10/19 21:07 Dose: 650 mg Enoxaparin Sodium (Lovenox) 40 mg SC DAILY COUNT [facility]CLUDES [facility] Last Admin: 01/14/19 09:25 Dose: 40 mg Lamotrigine (Lamictal) 100 mg PO BID COUNT INCLUDES [facility] Last Admin: 01/14/19 17:10 Dose: 100 mg Meclizine HCl (Antivert) 25 mg PO TID PRN PRN Reason: Dizziness Last Admin: 01/13/19 10:26 Dose: 25 mg Ondansetron HCl (Zofran Inj) 4 mg IVP Q6 PRN PRN Reason: Nausea/Vomiting Last Admin: 01/11/19 09:18 Dose: 4 mg Oxycodone/Acetaminophen (Percocet 5/325 Mg Tab) 1 tab PO Q6H PRN PRN Reason: Pain Stop: 01/17/19 14:21 Last Admin: 01/14/19 14:27 Dose: 1 tab Pantoprazole Sodium (Protonix Ec Tab) 40 mg PO DAILY COUNT INCLUDES [facility] Last Admin: 01/14/19 09:25 Dose: 40 mg Potassium Chloride (K-Dur 20 Meq Er Tab) 40 meq PO BRK COUNT INCLUDES [facility] Last Admin: 01/14/19 08:28 Dose: 40 meq - Labs Labs: 01/11/19 06:38 01/11/19 06:38 PT 11.3 SECONDS (9.7-12.2) 01/06/19 10:47 INR 1.0 01/06/19 10:47 APTT 37.1 SECONDS (21-34) H 01/06/19 10:47 - Constitutional Appears: Well - Head Exam Head Exam: ATRAUMATIC, NORMAL INSPECTION, NORMOCEPHALIC - Eye Exam Eye Exam: EOMI, Normal appearance, PERRL Pupil Exam: NORMAL ACCOMODATION, PERRL - ENT Exam ENT Exam: Mucous Membranes Moist, Normal Exam - Neck Exam Neck Exam: Full ROM, Normal Inspection. absent: Lymphadenopathy - Respiratory Exam Respiratory Exam: Decreased Breath Sounds - Cardiovascular Exam Cardiovascular Exam: REGULAR RHYTHM, +S1, +S2 - GI/Abdominal Exam GI & Abdominal Exam: Soft, Diminished Bowel Sounds - Rectal Exam Rectal Exam: Deferred - Neurological Exam Neurological Exam: Oriented x3 Assessment and Plan - Assessment and Plan (Free Text) Plan: plan discussed with patient moderate complexity of care medications reviewed vitals reviewed labs reviewed lamictal k-dur lovenox percocet ptotonix ec tab tylenol zofran inj
[2019-01-15] MEDS: Potassium Chloride 20 mEq ER Tab PO SCH (08:35)
[2019-01-15 08:59] VITALS: RESP 20
[2019-01-15] MEDS: Pantoprazole 40 mg EC Tab PO SCH (09:22)
[2019-01-15] MEDS: Enoxaparin 40 mg Syringe SC SCH (09:22)
--- NOTE | 2019-01-15 09:44 | CP.PCM.PN ---
Subjective - Date & Time of Evaluation Date of Evaluation: 01/15/19 Time of Evaluation: 09:44 - Subjective Subjective: PGY2 Progress Note for Dr. Cal Mcgrath. Patient seen and examined at bedside. Patient reports an improvement in pain since yesterdays visit. Patient denies any chest pain, fevers, headaches, abdominal pain, or any other complaints. Objective - Vital Signs/Intake and Output Vital Signs (last 24 hours): Temp Pulse Resp BP Pulse Ox 98.1 F 62 20 103/66 98 01/15/19 07:40 01/15/19 07:47 01/15/19 07:40 01/15/19 07:40 01/15/19 07:40 - Medications Medications: Current Medications Acetaminophen (Tylenol 325mg Tab) 650 mg PO Q6 PRN PRN Reason: Pain, Mild (1-3) Last Admin: 01/10/19 21:07 Dose: 650 mg Enoxaparin Sodium (Lovenox) 40 mg SC DAILY [facility] Last Admin: 01/15/19 09:22 Dose: 40 mg Lamotrigine (Lamictal) 100 mg PO BID [facility] Last Admin: 01/14/19 17:10 Dose: 100 mg Meclizine HCl (Antivert) 25 mg PO TID PRN PRN Reason: Dizziness Last Admin: 01/13/19 10:26 Dose: 25 mg Ondansetron HCl (Zofran Inj) 4 mg IVP Q6 PRN PRN Reason: Nausea/Vomiting Last Admin: 01/11/19 09:18 Dose: 4 mg Oxycodone/Acetaminophen (Percocet 5/325 Mg Tab) 1 tab PO Q6H PRN PRN Reason: Pain Stop: 01/17/19 14:21 Last Admin: 01/14/19 14:27 Dose: 1 tab Pantoprazole Sodium (Protonix Ec Tab) 40 mg PO DAILY [facility] Last Admin: 01/15/19 09:22 Dose: 40 mg Potassium Chloride (K-Dur 20 Meq Er Tab) 40 meq PO BRK [facility] Last Admin: 01/15/19 08:35 Dose: 40 meq - Labs Labs: 01/11/19 06:38 01/11/19 06:38 PT 11.3 SECONDS (9.7-12.2) 01/06/19 10:47 INR 1.0 01/06/19 10:47 APTT 37.1 SECONDS (21-34) H 01/06/19 10:47 - Head Exam Head Exam: ATRAUMATIC, NORMAL INSPECTION - Eye Exam Eye Exam: EOMI, Normal appearance. absent: Periorbital swelling Pupil Exam: NORMAL ACCOMODATION, PERRL - Neck Exam Neck Exam: Normal Inspection, Tenderness - Respiratory Exam Respiratory Exam: Clear to Ausculation Bilateral, NORMAL BREATHING PATTERN. absent: Stridor - Cardiovascular Exam Cardiovascular Exam: REGULAR RHYTHM, +S1, +S2. absent: Clicks, Murmur - GI/Abdominal Exam GI & Abdominal Exam: Soft, Tenderness, Diminished Bowel Sounds, Normal Bowel Sounds - Extremities Exam Extremities Exam: Normal Capillary Refill, Normal Inspection - Back Exam Back Exam: NORMAL INSPECTION - Neurological Exam Neurological Exam: Alert, Awake, CN II-XII Intact, Oriented x3 - Psychiatric Exam Psychiatric exam: Normal Affect, Normal Mood - Skin Skin Exam: Dry, Intact, Normal Color Assessment and Plan - Assessment and Plan (Free Text) Plan: 58 year old female with a past medical history of seizures, herniated discs and back pain admitted for intractable pain. Plan: Intractable Neck pain secondary to disc herniation C5-C6 with cord compression - Neuro/Surg Consult: Dr. Staton --> hep appreciated S/P Discectomy/fusion POD #8 - Images: Cervical spine MRI:Moderate size left paracentral disc herniation at C5-6 with minimal cord flattening. There is also left-sided foraminal stenosis Thoracic spine MRI:Moderate size left paracentral disc herniation at C5-6 with minimal cord flattening. There is also left-sided foraminal stenosis Lumbar spine MRI: Mild disc degeneration at L5-S1. No evidence of disc herniation or spinal stenosis - Cardiology Dr. Watson consulted for surgery clearance Patient medically cleared for O.R. - Medications: Morphine 4mg IVP Q6 PRN Zofran prn for nausea Flexeril 5mg PO TID Percocet 5/325mg 1 tab PO Q6 PRN History of Seizures - Neurology Dr. Spangler consulted--> Help appreciated - Head CT: No acute intracranial pathology identified. - Continue Lamotrigine 100mg PO BID Prophylaxis - Protonix 40mg daily Disposition: POD #8. Patient reports a little unsteadiness and dizzness with ambulating. Will keep overnight and discharge tomorrow with services. Management per Dr. Cal De La Cruz, PGY-2
--- NOTE | 2019-01-15 13:48 | CP.PCM.PN ---
Subjective - Date & Time of Evaluation Date of Evaluation: 01/15/19 Time of Evaluation: 09:00 - Subjective Subjective: patient examined today no nausea no vomiting no dizziness no diarrhea no fever no shortness of breath Objective - Vital Signs/Intake and Output Vital Signs (last 24 hours): Temp Pulse Resp BP Pulse Ox 98.1 F 62 20 103/66 98 01/15/19 07:40 01/15/19 07:47 01/15/19 07:40 01/15/19 07:40 01/15/19 07:40 - Medications Medications: Current Medications Acetaminophen (Tylenol 325mg Tab) 650 mg PO Q6 PRN PRN Reason: Pain, Mild (1-3) Last Admin: 01/10/19 21:07 Dose: 650 mg Enoxaparin Sodium (Lovenox) 40 mg SC DAILY [facility] Last Admin: 01/15/19 09:22 Dose: 40 mg Lamotrigine (Lamictal) 100 mg PO BID [facility] Last Admin: 01/15/19 10:25 Dose: 100 mg Meclizine HCl (Antivert) 25 mg PO TID PRN PRN Reason: Dizziness Last Admin: 01/13/19 10:26 Dose: 25 mg Ondansetron HCl (Zofran Inj) 4 mg IVP Q6 PRN PRN Reason: Nausea/Vomiting Last Admin: 01/11/19 09:18 Dose: 4 mg Oxycodone/Acetaminophen (Percocet 5/325 Mg Tab) 1 tab PO Q6H PRN PRN Reason: Pain Stop: 01/17/19 14:21 Last Admin: 01/14/19 14:27 Dose: 1 tab Pantoprazole Sodium (Protonix Ec Tab) 40 mg PO DAILY [facility] Last Admin: 01/15/19 09:22 Dose: 40 mg Potassium Chloride (K-Dur 20 Meq Er Tab) 40 meq PO BRK [facility] Last Admin: 01/15/19 08:35 Dose: 40 meq - Labs Labs: 01/11/19 06:38 01/11/19 06:38 PT 11.3 SECONDS (9.7-12.2) 01/06/19 10:47 INR 1.0 01/06/19 10:47 APTT 37.1 SECONDS (21-34) H 01/06/19 10:47 - Constitutional Appears: Well - Head Exam Head Exam: ATRAUMATIC, NORMAL INSPECTION, NORMOCEPHALIC - Eye Exam Eye Exam: EOMI, Normal appearance, PERRL Pupil Exam: NORMAL ACCOMODATION, PERRL - ENT Exam ENT Exam: Mucous Membranes Moist, Normal Exam - Neck Exam Neck Exam: Full ROM, Normal Inspection. absent: Lymphadenopathy - Respiratory Exam Respiratory Exam: Decreased Breath Sounds - Cardiovascular Exam Cardiovascular Exam: REGULAR RHYTHM, +S1, +S2 - GI/Abdominal Exam GI & Abdominal Exam: Soft, Diminished Bowel Sounds - Rectal Exam Rectal Exam: Deferred - Neurological Exam Neurological Exam: Oriented x3 Assessment and Plan - Assessment and Plan (Free Text) Plan: plan discussed with patient moderate complexity of care antivert k-dur lamictal lovenox percocet protonix ec tab tylenol zofran inj medications reviewed labs reviewed vitals reviewed
[2019-01-15] MEDS: Oxycodone/Acetaminophen 5/325 mg Tab PO PRN (21:42)
--- NOTE | 2019-01-16 07:40 | CP.PCM.PN ---
Subjective - Date & Time of Evaluation Date of Evaluation: 01/16/19 Time of Evaluation: 08:00 - Subjective Subjective: Medicine Progress Note for Dr. Michel Mcgrath: Patient was seen and examined at bedside in the AM. Patient states she is feeling much better and is able to ambulate out of bed to chair. Patient denies dizziness, headache, light headedness, chest pain, shortness of breath, fever, chills, diarrhea or constipation. Objective - Vital Signs/Intake and Output Vital Signs (last 24 hours): Temp Pulse Resp BP Pulse Ox 98.7 F 68 20 95/50 L 95 01/15/19 23:40 01/15/19 23:40 01/15/19 23:40 01/15/19 23:40 01/15/19 23:40 Intake and Output: 01/16/19 01/16/19 06:59 18:59 Intake Total 150 Balance 150 - Medications Medications: Current Medications Acetaminophen (Tylenol 325mg Tab) 650 mg PO Q6 PRN PRN Reason: Pain, Mild (1-3) Last Admin: 01/10/19 21:07 Dose: 650 mg Enoxaparin Sodium (Lovenox) 40 mg SC DAILY [facility] Last Admin: 01/15/19 09:22 Dose: 40 mg Lamotrigine (Lamictal) 100 mg PO BID [facility] Last Admin: 01/15/19 17:54 Dose: 100 mg Meclizine HCl (Antivert) 25 mg PO TID PRN PRN Reason: Dizziness Last Admin: 01/13/19 10:26 Dose: 25 mg Ondansetron HCl (Zofran Inj) 4 mg IVP Q6 PRN PRN Reason: Nausea/Vomiting Last Admin: 01/11/19 09:18 Dose: 4 mg Oxycodone/Acetaminophen (Percocet 5/325 Mg Tab) 1 tab PO Q6H PRN PRN Reason: Pain Stop: 01/17/19 14:21 Last Admin: 01/15/19 21:42 Dose: 1 tab Pantoprazole Sodium (Protonix Ec Tab) 40 mg PO DAILY [facility] Last Admin: 01/15/19 09:22 Dose: 40 mg Potassium Chloride (K-Dur 20 Meq Er Tab) 40 meq PO BRK [facility] Last Admin: 01/15/19 08:35 Dose: 40 meq - Labs Labs: 01/11/19 06:38 01/11/19 06:38 PT 11.3 SECONDS (9.7-12.2) 01/06/19 10:47 INR 1.0 01/06/19 10:47 APTT 37.1 SECONDS (21-34) H 01/06/19 10:47 - Constitutional Appears: No Acute Distress - Head Exam Additional comments: neck collar in place - Eye Exam Eye Exam: EOMI, Normal appearance - ENT Exam ENT Exam: Mucous Membranes Moist - Respiratory Exam Respiratory Exam: Clear to Ausculation Bilateral, NORMAL BREATHING PATTERN - Cardiovascular Exam Cardiovascular Exam: REGULAR RHYTHM, +S1, +S2 - GI/Abdominal Exam GI & Abdominal Exam: Soft, Normal Bowel Sounds. absent: Tenderness - Extremities Exam Extremities Exam: Normal Inspection - Neurological Exam Neurological Exam: Alert, Awake, Oriented x3 - Psychiatric Exam Psychiatric exam: Normal Affect Assessment and Plan - Assessment and Plan (Free Text) Assessment: 58 year old female with a past medical history of seizures, herniated discs and back pain admitted for intractable pain. Plan: Intractable Neck pain secondary to disc herniation C5-C6 with cord compression - Neuro/Surg Consult: Dr. Staton --> hep appreciated * S/P Discectomy/fusion POD #9 - Images: * Cervical spine MRI:Moderate size left paracentral disc herniation at C5-6 with minimal cord flattening. There is also left-sided foraminal stenosis * Thoracic spine MRI:Moderate size left paracentral disc herniation at C5-6 with minimal cord flattening. There is also left-sided foraminal stenosis * Lumbar spine MRI: Mild disc degeneration at L5-S1. No evidence of disc herniation or spinal stenosis - Cardiology Dr. Watson consulted for surgery clearance * Patient medically cleared for O.R. - Medications: * Zofran prn for nausea * Percocet 5/325mg 1 tab PO Q6 PRN - moderate pain * Tylenol 650mg po q6 prn - mild pain History of Seizures - Neurology Dr. Spangler consulted--> Help appreciated - Head CT: No acute intracranial pathology identified. - Continue Lamotrigine 100mg PO BID Prophylaxis - Protonix 40mg daily - Lovenox 40mg SC daily Disposition: POD #9. Patient for discharge home. Patient to follow up with Dr. Staton in the office this week. Patient to continue Lamotrigine 100mg one tablet twice a day. Patient to follow up with neurology, Dr. Spangler in [address] Cal Cuellar PGY-2
[2019-01-16 08:06] VITALS: BP 114/66; PULSE 78; TEMP 98.4; O2SAT 97
[2019-01-16 08:27] LABS: BASO % 0.7 % (0.0-2.0); EOS # 0.2 K/uL (0.0-0.7); EOS % 3.3 % (0.0-4.0); HEMOGLOBIN 11.8 g/dL (11.0-16.0); LYMPH # 1.8 K/uL (1.0-4.3); LYMPH % 33.3 % (20.0-40.0); MEAN CELL VOLUME 91.6 fL (81.0-99.0); MEAN CORPUSCULAR HEMOGLOBIN 30.6 pg (27.0-31.0); MEAN CORPUSCULAR HGB CONC 33.4 g/dL (33.0-37.0); MEAN PLATELET VOLUME 7.5 fL (7.2-11.7); MONO # 0.5 K/uL (0.0-0.8); MONO % 8.6 % (0.0-10.0); NEUT # 2.9 K/uL (1.8-7.0); NEUT % 54.1 % (50.0-75.0); NRBC % 0.1 % (0.0-2.0); RBC 3.87 Mil/uL (3.80-5.20); RED CELL DISTRIBUTION WIDTH 14.8 % (11.5-14.5); WHITE BLOOD COUNT 5.5 K/uL (4.8-10.8)
[2019-01-16 08:45] LABS: ALB/GLOB RATIO 1.2 (1.0-2.1); ALBUMIN 4.3 g/dL (3.5-5.0); ALT/SGPT 32 U/L (9-52); AST/SGOT 26 U/L (14-36); BLOOD UREA NITROGEN 21 mg/dL (7-17); GFR NON-AFRICAN AMERICAN > 60
[2019-01-16] MEDS: Pantoprazole 40 mg EC Tab PO SCH (09:05)
[2019-01-16] MEDS: Enoxaparin 40 mg Syringe SC SCH (09:05)
[2019-01-16] MEDS: Potassium Chloride 20 mEq ER Tab PO SCH (09:05)
--- NOTE | 2019-01-16 19:30 | CP.PCM.DIS ---
Provider - Provider Date of Admission: 01/05/19 15:52 Attending physician: Michele Mcgrath MD Consults: 01/03/19 22:48 Neurology Consult Stat Comment: Consulting Provider: Rasheed Spangler Consulting Physician: Rasheed Spangler Reason for Consult: h/o seizures, herniated dics, intractable pain 01/04/19 14:46 Physician Consult Routine Comment: Consulting Provider: Neil Staton Consulting Physician: Neil Staton Reason for Consult: intractable back pain; h/o herniated discs Additional Comments: pending MRIs of c/t/l spine Please notify consult today. Thank you 01/05/19 10:44 Critical Care Consult Routine Comment: Consulting Provider: Kristie Mcgrath Consulting Physician: Kristie Mcgrath Reason for Consult: HYPOTENSION 01/05/19 18:32 Neurology Consult Routine Comment: Consulting Provider: Андрей Malave Consulting Physician: Андрей Malave Reason for Consult: abn mri with multipe tear Time Spent in preparation of Discharge (in minutes): 30 Hospital Course - Lab Results Lab Results: Most Recent Lab Values WBC 5.5 K/uL (4.8-10.8) 01/16/19 08:15 RBC 3.87 Mil/uL (3.80-5.20) 01/16/19 08:15 Hgb 11.8 g/dL (11.0-16.0) 01/16/19 08:15 Hct 35.4 % (34.0-47.0) 01/16/19 08:15 MCV 91.6 fL (81.0-99.0) 01/16/19 08:15 MCH 30.6 pg (27.0-31.0) 01/16/19 08:15 MCHC 33.4 g/dL (33.0-37.0) 01/16/19 08:15 RDW 14.8 % (11.5-14.5) H 01/16/19 08:15 Plt Count 372 K/uL (130-400) 01/16/19 08:15 MPV 7.5 fL (7.2-11.7) 01/16/19 08:15 Neut % (Auto) 54.1 % (50.0-75.0) 01/16/19 08:15 Lymph % (Auto) 33.3 % (20.0-40.0) 01/16/19 08:15 [place] % (Auto) 8.6 % (0.0-10.0) 01/16/19 08:15 Eos % (Auto) 3.3 % (0.0-4.0) 01/16/19 08:15 Baso % (Auto) 0.7 % (0.0-2.0) 01/16/19 08:15 Neut # (Auto) 2.9 K/uL (1.8-7.0) 01/16/19 08:15 Lymph # (Auto) 1.8 K/uL (1.0-4.3) 01/16/19 08:15 [place] # (Auto) 0.5 K/uL (0.0-0.8) 01/16/19 08:15 Eos # (Auto) 0.2 K/uL (0.0-0.7) 01/16/19 08:15 Baso # (Auto) 0.0 K/uL (0.0-0.2) 01/16/19 08:15 PT 11.3 SECONDS (9.7-12.2) 01/06/19 10:47 INR 1.0 01/06/19 10:47 APTT 37.1 SECONDS (21-34) H 01/06/19 10:47 Puncture Site Lb 01/05/19 11:15 pCO2 29 mm/Hg (35-45) L 01/05/19 11:15 pO2 123 mm/Hg (80-100) H 01/05/19 11:15 HCO3 26.3 mmol/L (21-28) 01/05/19 11:15 ABG pH 7.52 (7.35-7.45) H 01/05/19 11:15 ABG Total CO2 24.6 mmol/L (22-28) 01/05/19 11:15 ABG O2 Saturation 100.5 % (95-98) H 01/05/19 11:15 ABG Base Excess 1.7 mmol/L (-2.0-3.0) 01/05/19 11:15 [place] Test Pos 01/05/19 11:15 ABG Potassium 3.8 mmol/L (3.6-5.2) 01/05/19 11:15 Sodium 140.0 mmol/l (132-148) 01/05/19 11:15 Chloride 113.0 mmol/L (98-107) H 01/05/19 11:15 Glucose 123 mg/dl (65-105) H 01/05/19 11:15 Lactate 0.7 mmol/L (0.7-2.1) 01/05/19 11:15 Liter Flow 2.5 01/05/19 11:15 Sodium 136 mmol/L (132-148) 01/16/19 08:15 Potassium 4.6 mmol/L (3.6-5.2) 01/16/19 08:15 Chloride 101 mmol/L (98-107) 01/16/19 08:15 Carbon Dioxide 27 mmol/L (22-30) 01/16/19 08:15 Anion Gap 13 (10-20) 01/16/19 08:15 BUN 21 mg/dL (7-17) H 01/16/19 08:15 Creatinine 0.9 mg/dL (0.7-1.2) 01/16/19 08:15 Est GFR ( Amer) > 60 01/16/19 08:15 Est GFR (Non-Af Amer) > 60 01/16/19 08:15 POC Glucose (mg/dL) 96 mg/dL (65-110) 01/04/19 16:21 Random Glucose 91 mg/dL (65-105) 01/16/19 08:15 Calcium 10.0 mg/dl (8.6-10.4) 01/16/19 08:15 Phosphorus 4.3 mg/dL (2.5-4.5) 01/16/19 08:15 Magnesium 2.2 mg/dL (1.6-2.3) 01/16/19 08:15 Total Bilirubin 0.3 mg/dL (0.2-1.3) 01/16/19 08:15 AST 26 U/L (14-36) 01/16/19 08:15 ALT 32 U/L (9-52) 01/16/19 08:15 Alkaline Phosphatase 93 U/L (38-126) 01/16/19 08:15 Total Creatine Kinase 133 U/L (30-135) 01/04/19 16:59 CK-MB (Mass) 1.09 ng/mL (0.0-3.38) 01/04/19 16:59 Troponin I < 0.0120 ng/mL (0.00-0.120) 01/05/19 11:19 NT-Pro-B Natriuret Pep 158 pg/mL (0-900) 01/05/19 11:19 Total Protein 7.9 g/dL (6.3-8.3) 01/16/19 08:15 Albumin 4.3 g/dL (3.5-5.0) 01/16/19 08:15 Globulin 3.6 gm/dL (2.2-3.9) 01/16/19 08:15 Albumin/Globulin Ratio 1.2 (1.0-2.1) 01/16/19 08:15 Arterial Blood Potassium 3.8 mmol/L (3.6-5.2) 01/05/19 11:15 Urine Opiates Screen Positive (NEGATIVE) H 01/05/19 15:04 Ur Opiates (GC/MS) Positive 300 (Negative) H 01/05/19 15:04 Ur Codeine Screen Negative 100 (Negative) 01/05/19 15:04 Ur Morphine Screen 4850 100 (Negative) H 01/05/19 15:04 Urine Methadone Screen Negative (NEGATIVE) 01/05/19 15:04 Ur Methadone, Qual Negative 300 (Negative) 01/05/19 15:04 Urine Propoxyphene Negative 300 (Negative) 01/05/19 15:04 Methaqualone Negative 300 (Negative) 01/05/19 15:04 Ur Barbiturates Screen Negative (NEGATIVE) 01/05/19 15:04 Ur Barbiturates, Qual Negative 300 (Negative) 01/05/19 15:04 Lamotrigine 1.3 mcg/mL (4.0-18.0) L 01/04/19 16:59 Ur Phencyclidine Scrn Negative (NEGATIVE) 01/05/19 15:04 Ur Phencyclidine (PCP) Negative 25 (Negative) 01/05/19 15:04 Ur Amphetamines Screen Negative 1000 (Negative) 01/05/19 15:04 U Benzodiazepines Scrn Negative (NEGATIVE) 01/05/19 15:04 U Benzodiazepines Qual Negative 300 (Negative) 01/05/19 15:04 Urine Cocaine Negative 300 (Negative) 01/05/19 15:04 U Oth Cocaine Metabols Negative (NEGATIVE) 01/05/19 15:04 U Cannabinoids Screen Negative (NEGATIVE) 01/05/19 15:04 U Marijuana (THC) Screen Negative 50 (Negative) 01/05/19 15:04 Ur Drug Screen Comment See note 01/05/19 15:04 Drugs of Abuse Note See note 01/05/19 15:04 Blood Type O POSITIVE 01/07/19 09:32 Antibody Screen Negative 01/07/19 09:32 - Hospital Course Hospital Course: Patient was seen and examined at bedside in the AM. Patient states she is feeling much better and is able to ambulate out of bed to chair. Patient denies dizziness, headache, light headedness, chest pain, shortness of breath, fever, chills, diarrhea or constipation. 58 year old female with a past medical history of seizures, herniated discs and back pain admitted for intractable pain. Plan: Intractable Neck pain secondary to disc herniation C5-C6 with cord compression - Neuro/Surg Consult: Dr. Staton --> hep appreciated * S/P Discectomy/fusion POD #9 - Images: * Cervical spine MRI:Moderate size left paracentral disc herniation at C5-6 with minimal cord flattening. There is also left-sided foraminal stenosis * Thoracic spine MRI:Moderate size left paracentral disc herniation at C5-6 with minimal cord flattening. There is also left-sided foraminal stenosis * Lumbar spine MRI: Mild disc degeneration at L5-S1. No evidence of disc herniation or spinal stenosis - Cardiology Dr. Watson consulted for surgery clearance * Patient medically cleared for O.R. - Medications: * Zofran prn for nausea * Percocet 5/325mg 1 tab PO Q6 PRN - moderate pain * Tylenol 650mg po q6 prn - mild pain History of Seizures - Neurology Dr. Spangler consulted--> Help appreciated - Head CT: No acute intracranial pathology identified. - Continue Lamotrigine 100mg PO BID Prophylaxis - Protonix 40mg daily - Lovenox 40mg SC daily Disposition: POD #9. Patient for discharge home. Patient to follow up with Dr. Staton in the office this week. Patient to continue Lamotrigine 100mg one tablet twice a day. Patient to follow up with neurology, Dr. Spangler in 2 weeks. Discharge Exam - Head Exam Head Exam: ATRAUMATIC, NORMAL INSPECTION Discharge Plan - Discharge Medications Prescriptions: lamoTRIgine [Lamictal] 100 mg PO BID 30 Days tab - Follow Up Plan Condition: IMPROVED Disposition: HOME/ ROUTINE Instructions: Low Back Pain (DC), Seizures, Adult (DC), Herniated Disc (DC), Lamotrigine Additional Instructions: Patient is to call and schedule an appointment to follow up with neurosurgery, Dr. Staton in the office this week. Patient to continue Lamotrigine 100mg one tablet twice a day. Patient to follow up with neurology, Dr. Spangler in 2 weeks. Please take Tylenol every 6 hours as needed for pain. Referrals: Rasheed Spangler MD [Staff Provider] - Reema Mcgrath MD [Staff Provider] - Neil Staton MD [Staff Provider] -
== END 2019-01-16 14:42 | disposition home or self-care (01) | DRG 473 ==
LOC: C.ER 20:36 → C.9E 22:46 → C.6T 01-04 00:17 → OBSVTOIN 01-05 15:52 → C.6T 01-14 14:11
PROVIDERS: ADMIT Internal Medicine Nephrology; ATTEND Internal Medicine Nephrology
PROC: 07DS3ZZ Extraction of Vertebral Bone Marrow, Percutaneous Approach (ICD-10-PCS; 2019-01-07)
PROC: 0RG10A0 Fusion of Cervical Vertebral Joint with Interbody Fusion Device, Anterior Approach, Anterior Column, Open Approach (ICD-10-PCS; principal; 2019-01-07 13:00)
DX: M50.022 Cervical disc disorder at C5-C6 level with myelopathy (principal); G89.29 Other chronic pain; K59.00 Constipation, unspecified; G40.909 Epilepsy, unspecified, not intractable, without status epilepticus; F41.9 Anxiety disorder, unspecified; F32.9 Major depressive disorder, single episode, unspecified; Z87.891 Personal history of nicotine dependence